=== PATIENT | male | born 1950 | race Caucasian/White ===

== ENCOUNTER 2019-03-28 11:30 | Emergency (ER) | payer MEDICARE, SELFPAY ==
[2019-03-28 11:41] VITALS: BP 147/92; PULSE 83; RESP 20; TEMP 36.9; O2SAT 100
[2019-03-28 11:44] VITALS: PULSE 83; RESP 20; O2SAT 100
--- NOTE | 2019-03-28 11:51 | ED.GENADULT ---
HPI - General Adult General Chief complaint: Upper Respiratory Infection Stated complaint: cough/chest congestion/sinus issues Time Seen by Provider: 03/28/19 11:51 Source: patient Mode of arrival: ambulatory Limitations: no limitations History of Present Illness HPI narrative: 68-year-old male patient presents to the [facility] with complaints of cold symptoms for the past 5 days. Patient states he started off as a head cold and states that he is now had a productive cough for the last 2 to 3 days. Patient states that his cough is worse at night when he lays down. Patient states he is tried [id number] Coricidin along with Robitussin for his symptoms. Patient denies any chest pain or shortness of breath. Patient denies any abdominal pain, nausea, vomiting or diarrhea. Patient states he did get a flu shot this year. Related Data Allergies Allergy/AdvReac Type Severity Reaction Status Date / Time No Known Allergies Allergy Verified 03/28/19 11:37 Review of Systems Review of Systems: Narrative: CONSTITUTIONAL: Denies fever, chills, or sweats. EYES: Denies visual changes, redness, or discharge. ENT: Positive clear rhinorrhea, congestion, denies sore throat, or otalgia. CARDIOVASCULAR: Denies chest pain, palpitations, or edema. RESPIRATORY: Positive cough, denies dyspnea. GASTROINTESTINAL: Denies abdominal pain, nausea, vomiting, or diarrhea. GENITOURINARY: Denies dysuria or hematuria. SKIN: Denies rash or itching. MUSCULOSKELETAL: Denies back pain, joint pain, or myalgia. NEUROLOGIC: Denies headache, numbness, or weakness. PSYCHIATRIC: Denies anxiety or depression. [facility] Family History Family History Father Family history of cardiovascular disease Other Diabetes mellitus Social History Social History Smoking status: Never smoker Alcohol intake: never Comments At the time of my signature I agree with nursing past medical history, surgical, social, and family history. There is no relevant family history pertinent to the presenting complaint. Exam Narrative: Exam Narrative: GENERAL: ill-appearing, well-nourished, and in no acute distress. HEAD: Normocephalic, atraumatic. No tenderness noted to frontal and maxillary sinuses on palpation. EYES: PERRLA and EOMI. ENT: Nares with erythema and edema noted bilaterally with right nare swollen shut, no rhinorrhea or epistaxis. Mucous membranes moist. Posterior pharynx with no erythema, tonsillar margin, exudates or lesions present. There is some noted postnasal drip. Bilateral TMs are clear no erythema or foreign bodies in the canal. NECK: Supple. No lymphadenopathy CHEST: Clear to auscultation. No respiratory distress. Patient able talk in clear complete sentences. No tripoding noted. HEART: Regular rate and rhythm. No murmur heard. Normal peripheral pulses. ABDOMEN: Soft, nontender, nondistended, normal active bowel sounds. EXTREMITIES: Normal range of motion. No edema. SKIN: Warm, dry, no rash. NEURO: No focal deficits. Alert and oriented x3. Course Vital Signs Vital signs: Vital Signs Temperature 36.9 C 03/28/19 11:41 Pulse Rate 83 03/28/19 11:41 Respiratory Rate 20 03/28/19 11:41 Blood Pressure 147/92 H 03/28/19 11:41 Pulse Oximetry 100 03/28/19 11:41 Temperature 36.9 C 03/28/19 11:41 Pulse Rate 83 03/28/19 11:44 Respiratory Rate 20 03/28/19 11:44 Blood Pressure 147/92 H 03/28/19 11:41 Pulse Oximetry 100 03/28/19 11:44 Vital signs reviewed. The patient has been informed that they may have pre-hypertension or Hypertension based on a BP reading in the department. I recommend that the patient call the primary care provider listed on their discharge instructions or a physician of their choice this week to arrange follow up for further evaluation of possible pre-hypertension or Hypertension Medical Decision Leonor
== END 2019-03-28 12:01 | disposition home or self-care (01) ==
PROVIDERS: Emergency Provider Nurse Practitioner Family; PCP Family Medicine
DX: J06.9 Acute upper respiratory infection, unspecified (principal); J34.89 Other specified disorders of nose and nasal sinuses; M19.90 Unspecified osteoarthritis, unspecified site; E03.9 Hypothyroidism, unspecified
CPT/HCPCS: 99213; G0463

== ENCOUNTER 2020-02-03 19:42 | Emergency (ER) | payer OTHER, MEDICARE, SELFPAY ==
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
[2020-02-03 19:42] VITALS: BP 187/91; PULSE 79; RESP 18; TEMP 36.3; O2SAT 99
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
[2020-02-03] MEDS: MORPHINE SULFATE (*CRX) 4 MG/ML INJ IV PUSH (21:01)
[2020-02-03] MEDS: ONDANSETRON INJ 4 MG/2 ML VIAL IV PUSH (21:01)
[2020-02-03] MEDS: SODIUM CHLORIDE 0.9% IV 1,000 ML 999 ML IV CONT (21:02)
[2020-02-03 21:44] LABS: Basophils Percent Auto 0.1 % (0.2-1.2); Eosinophils Absolute Auto 0.2 K/mm3 (0-0.3); Eosinophils Percent Auto 1.4 % (0-4.4); Hemoglobin 14.8 g/dL (14.0-18.0); Immature Granulocyte Absolute 0.07 K/mm3 (0.00-0.031); Immature Granulocyte Percent A 0.5 % (0-0.5); Lymphocytes Absolute Auto 2.01 K/mm3 (0.9-3.2); Lymphocytes Percent Auto 15.2 % (18.3-44.2); Mean Corpuscular HGB Conc 33.6 g/dl (32-36); Mean Corpuscular Hemoglobin 29.8 pg (26-34); Mean Corpuscular Volume 88.7 fl (80-100); Mean Platelet Volume 9.5 fl (7.4-10.4); Monocytes Absolute Auto 0.8 K/mm3 (0.1-0.6); Monocytes Percent Auto 5.7 % (2.6-8.5); Neutrophils Absolute Auto 10.2 K/mm3 (1.3-6.7); Neutrophils Percent Auto 77.1 % (45.5-73.1); Platelet Count Result 271 k/mm3 (150-375); Red Blood Count 4.96 M/mm3 (4.6-6.20); Red Cell Distribution Width 13.3 % (11.5-14.5); White Blood Count 13.2 K/mm3 (4.5-10.0)
[2020-02-03 21:46] LABS: Add Urine Microscopic? NO; Appearance Urine Clear (Clear); Bilirubin Urine Negative (Negative); Blood Urine Negative (Negative); Color Urine Straw (Yellow); Glucose Urine UA Negative (Negative); Ketones Urine Negative (Negative); Leukocyte Esterase Ur Negative LEU/UL (Negative); Nitrate Urine Negative (Negative); Protein Urine Negative (Negative); Specific Grav Ur 1.013 (1.001-1.035); Urobilinogen Urine Negative mg/dL (<2.0)
[2020-02-03] MEDS: HYDROmorphone HCL INJ (*CRX) 1 MG/ML SYR 0.5 MG IV PUSH (21:51)
[2020-02-03 21:53] VITALS: BP 181/86; PULSE 78; RESP 16; O2SAT 94
[2020-02-03 21:54] LABS: INR 1.1; Partial Thromboplastin Time 28.1 SECONDS (22.3-36.8); Prothrombin Time 14.6 Seconds (11.1-14.7)
[2020-02-03 21:57] LABS: Alanine Aminotransferase 18 U/L (4-50); Albumin Level 3.9 g/dL (3.5-5.1); Alkaline Phosphatase 107 U/L (38-126); Anion Gap 6 mmol/L (8-16); Aspartate Amino Transferase 29 U/L (17-59); Bilirubin,Total 0.6 mg/dL (0.2-1.3); Blood Urea Nitrogen 15 mg/dL (9-20); Calcium 8.7 mg/dL (8.4-10.2); Carbon Dioxide 26 mmol/L (22-30); Chloride 107 mmol/L (98-107); Estimated CRCL calculation 92 ml/min; Estimated Glomerular Filt Rate > 60; Glucose 101 mg/dL (75-110); Potassium 3.9 mmol/L (3.4-5.0); Sodium 139 mmol/L (137-145)
[2020-02-03 22:53] VITALS: BP 158/90; PULSE 88; RESP 18; O2SAT 98
[2020-02-03] MEDS: TETANUS,DIPHTHERIA,AC PERTUSSIS ADULT (0.5 ML) BOOSTRIX IM (23:32)
[2020-02-04] MEDS: oxyCODONE HCL (*CRX) 5 MG TAB IR PO
== END 2020-02-04 00:03 | disposition home or self-care (01) ==
PROVIDERS: Emergency Provider Emergency Medicine; PCP Family Medicine
DX: S06.0X0A Concussion without loss of consciousness, initial encounter (principal); S00.432A Contusion of left ear, initial encounter; M16.0 Bilateral primary osteoarthritis of hip; E03.9 Hypothyroidism, unspecified; M51.36 Other intervertebral disc degeneration, lumbar region; Z23 Encounter for immunization; V43.52XA Car driver injured in collision with other type car in traffic accident, initial encounter
CPT/HCPCS: 10140; 36415; 70450; 71046; 72125; 72128; 72132; 74177; 80053; 81003; 85025; 85610; 85730; 90471; 90715; 96361; 96374; 96375; 99284; A9270; J1170; J2270; J2405; J7030; Q9967

== ENCOUNTER 2020-08-28 10:33 | Outpatient (CLI) | payer MEDICARE, SELFPAY ==
--- NOTE | ~2020-08-28 | XR_ITS ---
EXAMINATION: XR knee RT min 4V DATE: 08/28/2020 11:05 INDICATION: Right knee pain and primary osteoarthritis. TECHNIQUE: 4 views of right knee including some standing views were obtained. COMPARISON: Right knee radiographs 08/30/2012 FINDINGS: Bone alignment is normal. No fracture. There is moderate osteoarthritis of medial and herndon lofemoral compartments and mild osteoarthritis of lateral compartment. There is a small knee joint ef fusion. IMPRESSION: 1. Moderate right knee osteoarthritis. 2. Small right knee joint effusion. Reviewed, dictated and finalized at location A.
--- NOTE | ~2020-08-28 | XR_ITS ---
EXAMINATION: XR knee LT min 4V DATE: 08/28/2020 11:05 INDICATION: Left knee pain and primary osteoarthritis. TECHNIQUE: 4 views of left knee including standing views were obtained. COMPARISON: Left knee radiographs 03/04/2019 FINDINGS: Bone alignment is normal. No fracture. There is moderate osteoarthritis of medial compartme nt and mild osteoarthritis of lateral and patellofemoral compartments. No knee joint effusion. IMPRESSION: 1. Moderate left knee osteoarthritis. Reviewed, dictated and finalized at location A.
--- NOTE | ~2020-08-28 | XR_ITS ---
XR hip BI 2V w AP pelvis DATE: 08/28/2020 11:05 INDICATION: Bilateral hip pain TECHNIQUE: AP pelvis. AP and lateral views of each hip. COMPARISON: 09/03/2018 AP pelvis and bilateral hips FINDINGS: There is levoscoliosis of the lumbar spine and lumbar and lumbosacral degenerative disc dis ease with prominent bridging osteophytes on the left at L3-4 and L4-5. The pubic symphysis and sacroiliac joints are intact. No pelvic fracture or bone destruction. Moderate right and mild left hip osteoarthritis. No fracture, dislocation, avascular necrosis or bone destruction of the hips. IMPRESSION: Moderate bilateral hip osteoarthritis Reviewed, dictated and finalized at location B.
== END 2020-08-28 10:34 | disposition home or self-care (01) ==
PROVIDERS: PCP Family Medicine; Visit Provider Family Medicine
DX: M16.0 Bilateral primary osteoarthritis of hip (principal); M17.0 Bilateral primary osteoarthritis of knee; M25.461 Effusion, right knee
CPT/HCPCS: 73521; 73564

== ENCOUNTER 2020-09-03 12:53 | Emergency (ER) | payer MEDICARE, SELFPAY ==
[2020-09-03 13:07] VITALS: BP 129/69; PULSE 78; RESP 16; TEMP 37.3; O2SAT 97
--- NOTE | 2020-09-04 19:42 | ED.SKABFB ---
HPI - Skin/Abscess/Foreign Bdy General Chief complaint: Skin/Abscess/Foreign Body Stated complaint: pos insect sting History of Present Illness HPI narrative: This is a 69-year-old male that presented to urgent care with right ankle swelling status post wasp sting.Patient did witness the wasp. His swoll and he developed redness. The swelling and redness migrated to his calf area. The patient denies pulses are palpable sensations are positive ,SOB, CP, palpitation, extremity numbness, lightheadedness, dizziness, constipation, diarrhea, chills, or fever. Related Data Allergies Allergy/AdvReac Type Severity Reaction Status Date / Time No Known Allergies Allergy Verified 09/03/20 13:06 Review of Systems Review of Systems: Narrative: A 14 organ system Review of Systems was performed and pertinent positives included in the HPI, otherwise remaining ROS is negative. All systems reviewed & are unremarkable except as noted in HPI and below PMFSH Past Medical History Medical History (Updated 09/04/20 @ 00:00 by Background Daemon) Bilateral primary osteoarthritis of hip Bilateral primary osteoarthritis of knee BMI 32.0-32.9,adult Elevated prostate specific antigen [PSA] Hypothyroidism Other intervertebral disc degeneration, lumbar region Family History Family History Father Family history of cardiovascular disease Other Diabetes mellitus Social History Social History Second hand tobacco smoke exposure: No Alcohol intake: never Substance use: never Substance use type: does not use 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 HEAD: normocephalic, atraumatic. EYES: PERRL. Sclera clear/white. Vision is grossly intact. EARS: External ears normal, auditory canals clear and without drainage, TMs normal without perforation. Hearing grossly intact. NOSE: External nose normal with no obvious nasal discharge, nares without redness, no rhinorrhea. THROAT: Mucous membranes moist, posterior pharynx clear. NECK: Neck supple, non-tender without lymphadenopathy, masses or thyromegaly. CARDIOVASCULAR: Regular rate and rhythm without murmurs, gallops, or rubs. RESPIRATORY: Clear to auscultation. Breath sounds equal bilaterally. No wheezes, rales, or rhonchi. GASTROINTESTINAL: Abdomen soft, non-tender, nondistended. Bowel sounds are active. No hepato-splenomegaly, or palpable masses. No guarding. SKIN: Erythema and edema to the right ankle area That Extends to the Mid calf. NEURO: awake, alert, and oriented to person, place and time. There were no obvious focal neurologic abnormalities. Steady gait EXTREMITIES: Limited range of motion right lower extremity. . No calf tenderness. Negative Homans sign bilaterally. BACK: Nontender without deformity or crepitance. No flank tenderness. Course Course Emergency Course: Patient treated for cellulitis Vital Signs Vital signs: Vital Signs Temperature 99.1 F 09/03/20 13:07 Pulse Rate 78 09/03/20 13:07 Respiratory Rate 16 09/03/20 13:07 Blood Pressure 129/69 09/03/20 13:07 Pulse Oximetry 97 09/03/20 13:07 Temperature 99.1 F 09/03/20 13:07 Pulse Rate 78 09/03/20 13:07 Respiratory Rate 16 09/03/20 13:07 Blood Pressure 129/69 09/03/20 13:07 Pulse Oximetry 97 09/03/20 13:07 MDM - Skin/Abscess/Foreign Bdy Differential Diagnosis Differential diagnosis: Likely cellulitis and insect bites Discharge Plan Discharge Clinical Impression: Cellulitis, Insect bite Patient Disposition: Home, Self-Care Condition: Stable Instructions: Antibiotic Form, Cellulitis (ED), Insect Bite or Sting (ED) Additional Instructions: Wash the area wit
== END 2020-09-03 13:59 | disposition home or self-care (01) ==
PROVIDERS: Emergency Provider Nurse Practitioner; PCP Family Medicine
DX: L03.115 Cellulitis of right lower limb (principal); T63.461A Toxic effect of venom of wasps, accidental (unintentional), initial encounter; M16.10 Unilateral primary osteoarthritis, unspecified hip; M17.10 Unilateral primary osteoarthritis, unspecified knee; E03.9 Hypothyroidism, unspecified; M51.36 Other intervertebral disc degeneration, lumbar region
CPT/HCPCS: 99213; G0463

== ENCOUNTER 2021-01-12 15:26 | Emergency (ER) | payer MEDICARE, SELFPAY ==
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
[2021-01-12 15:30] VITALS: BP 161/82; PULSE 80; RESP 16; TEMP 37.3; O2SAT 99
--- NOTE | 2021-01-12 15:30 | ED.LOWEXIN ---
HPI - Extremity Injury (Lower) General Chief Complaint: Extremity Injury, Lower Stated Complaint: L KNEE PAIN Time Seen by Provider: 01/12/21 15:30 Source: patient, RN notes reviewed and old records reviewed Mode of arrival: ambulatory Limitations: no limitations History of Present Illness HPI Narrative: 70-year-old male presents to the [facility] with complaints of left knee pain for the last 2 weeks. Has a history of chronic pain. Currently in PT for hip pain. Takes hydrocodone and meloxicam. Has full range of motion. Walks with a slight limp. Denies any injury. Patient was concern for meniscus injury. States he had surgery on his meniscus but does not remember hurting this much. Related Data Allergies Allergy/AdvReac Type Severity Reaction Status Date / Time No Known Allergies Allergy Verified 12/04/20 09:08 Review of Systems Review of Systems: All systems reviewed & are unremarkable except as noted in HPI and below Constitutional: Constitutional: Reports no additional constitutional complaints, Denies chills and Denies fever(s) Eyes: Eyes: Reports no additional eye complaints ENT: Reports system reviewed and no additional complaints, except as documented Cardiovascular: Cardiovascular: Reports no additional cardiovascular complaints Respiratory: Respiratory: Reports no additional respiratory complaints Musculoskeletal: Musculoskeletal: Reports as per HPI, Reports arthralgias (Left knee) and Denies joint swelling Integumentary/Breasts: Skin/Breast: Reports system reviewed and no additional complaints, except as docu Neurologic: Reports system reviewed and no additional complaints, except as documented Psychiatric: Psychiatric: Reports no additional psychiatric complaints Allergic/Immunologic: Allergic/Immunologic: Reports no additional allergic/immunologic complaints [facility] Past Medical History Medical History Bilateral primary osteoarthritis of hip Bilateral primary osteoarthritis of knee BMI 32.0-32.9,adult BMI 33.0-33.9,adult Elevated prostate specific antigen [PSA] Hypothyroidism Other intervertebral disc degeneration, lumbar region Family History Family History Father Family history of cardiovascular disease Other Diabetes mellitus Social History Social History Second hand tobacco smoke exposure: No Alcohol intake: never Substance use: never Substance use type: does not use 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 There is no relevant family history pertinent to the patient complaint. Exam Const: General: healthy appearing, no acute distress and alert Nutritional Appearance: well nourished Orientation/consciousness: patient oriented x3 Limitations: no limitations HENMT: Head: normal to inspection Eyes: Pupils: Equal, round and reactive pupils present Neck: Neck: normal visual inspection, no lymphadenopathy and no meningeal signs Chest: Chest palpation & inspection: normal inspection of the chest Resp: Effort & Inspection: normal respiratory effort Cardio: Rate: regular rate Rhythm: regular rhythm Back/Spine/Pelvis: Back: no CVA tenderness Skin: General skin exam: normal color Rashes: no rashes Wounds: no wounds Neuro: General: patient oriented x3, moves all extremities, no meningeal signs and no focal motor deficits Speech: normal speech Gait exam (Neuro): Normal gait present Extrem: Left lower extremity: knee Details: tenderness Location: of the lateral joint line Knee images: 1. Reports pain worse with movement. Psych: Appearance: grossly normal and well kempt Mental Status: men
== END 2021-01-12 16:36 | disposition home or self-care (01) ==
PROVIDERS: Emergency Provider Nurse Practitioner; PCP Family Medicine
DX: M25.562 Pain in left knee (principal); M16.0 Bilateral primary osteoarthritis of hip; M17.0 Bilateral primary osteoarthritis of knee; E03.9 Hypothyroidism, unspecified; M51.36 Other intervertebral disc degeneration, lumbar region
CPT/HCPCS: 73564; 99213; G0463

== ENCOUNTER 2021-02-15 06:44 | Outpatient (CLI) | payer MEDICARE, SELFPAY ==
--- NOTE | ~2021-02-15 | MR_ITS ---
EXAMINATION: MR knee LT wo con DATE: 02/15/2021 07:44 INDICATION: Left knee pain TECHNIQUE: Magnetic resonance imaging (MRI) of the left knee was performed without intravenous contra st. Sequences included coronal PD-weighted FSE, coronal PD-weighted FS FSE, sagittal T2-weighted FSE , sagittal PD-weighted FS FSE and axial PD weighted fat saturated FSE. COMPARISON: Left knee MRI dated 10/14/2017 FINDINGS: Medial compartment: Chronic tear of the medial meniscus now with smoother margins to a defect at the junction of the body and posterior horn consistent with interval partial meniscectomy. There is amorphous increased signa l of less than fluid intensity to the meniscal body extending approximately 1 cm anterior to the petra in of the meniscectomy defect which could represent degeneration versus residual/recurrent tear. Inte rval progression in partial-thickness cartilage loss along the anterior to central weightbearing medi al femoral condyle greater than 50% cartilage thickness loss at the central weightbearing medial femo ral condyle. There is mild irregularity to the articular cortex with minimal underlying increased mar row signal along the medial margin of the central weightbearing medial femoral condyle. Additional pa rtial thickness cartilage loss with mild chondral surface regularity at the medial tibial plateau wit h a few tiny foci of subarticular increased signal anteromedially. Lateral compartment: Subtle linear increased signal extending to contact the inferior articular surface along the body of the lateral meniscus on 3 consecutive images, series 5 & 6, images 13-15 consistent with meniscal tea r. Articular cartilage is normal. Patellofemoral compartment: Partial-thickness trochlear chondral ulceration with chondral surface regularity. This involves great er than 50% the cartilage thickness in places with mild underlying cortical irregularity at the infer ior aspect of the medial trochlea. Shallow chondral surface regularity along the inferior margin of t he patella. Ligaments and tendons: Posterior cruciate ligament is normal. The anterior cruciate ligament demonstrates a normal angle rel ative to Blumensaat line. It appears thickened with increased intrasubstance signal surrounding intac t appearing linear fibers with a celery stalk appearance. Again seen is thickening of the proximal medial collateral and fibular collateral ligaments without surrounding edema consistent with scarring related to chronic partial tears. The extensor mechanism is normal. The visualized medial and latera l hamstring tendons as well as the iliotibial band are normal. Fluid: Small knee joint effusion with mild synovitis at the suprapatellar pouch. No loose osteochondral bodi es identified. Small Montejo's cyst. Osseous/other: Alignment is normal. No fracture or pathologic marrow replacing process. IMPRESSION: 1. Interval partial medial meniscectomy with meniscal degeneration versus residual/recurrent tear kelly ng the anterior margin of the mastectomy defect. 2. Longitudinal horizontal tear at the body of the lateral meniscus. 3. Osteoarthritis with interval progression of now moderate osteoarthritis with extensive moderate to high-grade chondromalacia in the medial compartment and minimal change in mild osteoarthritis with a dditional moderate and high-grade chondromalacia in the patellofemoral compartment. 4. Small left knee joint effusion and small Montejo's cyst. 5. Mucoid degeneration of the anterior cruciate ligament without definitive tear. Correlate with phys ical exam to asses for degree of functional competence. 6. Unchanged scarring at the proximal medial and fibular collateral ligaments consistent with sequela of chronic sprains. Reviewed, dictated and finalized at location B. Electronically signed by Luis Alberto Bishop
== END 2021-02-15 06:45 | disposition home or self-care (01) ==
PROVIDERS: PCP Family Medicine; Visit Provider Family Medicine
DX: S83.282D Other tear of lateral meniscus, current injury, left knee, subsequent encounter (principal); X58.XXXD Exposure to other specified factors, subsequent encounter; M25.462 Effusion, left knee; M71.22 Synovial cyst of popliteal space [Baker], left knee
CPT/HCPCS: 73721

== ENCOUNTER 2021-03-15 06:46 | Outpatient (CLI) | payer MEDICARE, SELFPAY ==
--- NOTE | 2021-03-15 | ECG_ITS ---
Measurements Intervals [place] Rate: 77 P: 35 RI: 174 QRS: 63 QRSD: 102 T: 59 QT: 402 QTc: 456 Interpretive Statements SINUS RHYTHM BASELINE ARTIFACT- I, II, III, AVR, AVL, AVF, V1, V4-V6 NORMAL ECG Electronically Signed On 03-15-2021 8:02:23 HVAC SERVICE TECH by Francis Bustos D.O.
[2021-03-15 08:24] LABS: Hematocrit 43.3 % (42.0-52.0); Hemoglobin 14.6 g/dL (14.0-18.0)
[2021-03-15 08:37] LABS: Estimated Glomerular Filt Rate > 60; Glucose 108 mg/dL (65-110)
== END 2021-03-15 06:47 | disposition home or self-care (01) ==
PROVIDERS: PCP Family Medicine; Visit Provider Orthopaedic Surgery
DX: Z01.818 Encounter for other preprocedural examination (principal); M17.12 Unilateral primary osteoarthritis, left knee
CPT/HCPCS: 36415; 82040; 82565; 82947; 85014; 85018; 93005

== ENCOUNTER 2021-03-22 10:00 | Outpatient (CLI) | payer MEDICARE, SELFPAY ==
--- NOTE | ~2021-03-22 | CT_ITS ---
EXAMINATION: CT LE LT wo con DATE: 03/22/2021 10:22 INDICATION: Unilateral primary osteoarthritis of the left knee presenting with left knee pain TECHNIQUE: High resolution computed tomography (CT) of the left lower limb was performed without intr avenous contrast. Additional sagittal and coronal reconstructions were performed. Automated exposure control and iterative reconstruction technique were employed. The dose-length product was 1740.43 mGy -cm. COMPARISON: Left knee radiographs dated 01/12/2021 and MRI dated 02/15/2021 FINDINGS: Bone alignment is normal. No fracture. Mild osteoarthritis of the left hip. Small amount of heterotop ic ossification along the greater trochanter. Osteoarthritis at the left knee with moderate joint spa ce narrowing at the medial compartment which could be underestimated on nonweightbearing imaging. Sma ll marginal osteophytes at the patellofemoral compartment. Small left knee joint effusion. Additional polyarticular osteoarthritis at the left midfoot with moderate osteoarthritis of the second tarsal m etatarsal joint, mild to moderate osteoarthritis at the articulation between the navicula and the med ial cuneiform and mild osteoarthritis at the calcaneocuboid and cuboid navicular articulations. IMPRESSION: 1. Polyarticular osteoarthritis, moderate at the medial compartment of the left knee, mild to moderat e at several joints in the left midfoot and mild at the left hip. Reviewed, dictated and finalized at location A. OR VICE PRESIDENT & GENERAL COUNSEL IMPRESSION: 1. Polyarticular osteoarthritis, moderate at the medial compartment of the left knee, mild to moderate at several joints in the left midfoot and mild at the l eft hip.
== END 2021-03-22 10:01 | disposition home or self-care (01) ==
LOC: ANHIMG 10:03
PROVIDERS: PCP Family Medicine; Visit Provider Orthopaedic Surgery
DX: M17.12 Unilateral primary osteoarthritis, left knee (principal)
CPT/HCPCS: 73700

== ENCOUNTER 2021-05-05 07:42 | Outpatient (CLI) | payer MEDICARE, SELFPAY ==
[2021-05-05 09:14] LABS: Eosinophils Absolute Auto 0.2 K/mm3 (0-0.3); Eosinophils Percent Auto 2.2 % (0-4.4); Hematocrit 43.9 % (42.0-52.0); Hemoglobin 14.3 g/dL (14.0-18.0); Immature Granulocyte Absolute 0.03 K/mm3 (0.00-0.031); Immature Granulocyte Percent A 0.4 % (0-0.5); Lymphocytes Percent Auto 22.3 % (18.3-44.2); Mean Corpuscular HGB Conc 32.6 g/dl (32-36); Mean Corpuscular Hemoglobin 29.8 pg (26-34); Mean Corpuscular Volume 91.5 fl (80-100); Mean Platelet Volume 9.7 fl (7.4-10.4); Monocytes Absolute Auto 0.5 K/mm3 (0.1-0.6); Monocytes Percent Auto 7.4 % (2.6-8.5); Neutrophils Absolute Auto 4.8 K/mm3 (1.3-6.7); Neutrophils Percent Auto 67.7 % (45.5-73.1); Platelet Count Result 233 k/mm3 (150-375); Red Cell Distribution Width 13.2 % (11.5-14.5); White Blood Count 7.2 K/mm3 (4.5-10.0)
[2021-05-05 09:30] LABS: Urine Cotinine NEGATIVE
[2021-05-05 09:33] LABS: Albumin Level 4.2 g/dL (3.5-5.1); Estimated Glomerular Filt Rate > 60; Glucose 117 mg/dL (65-110)
[2021-05-05 10:44] LABS: Hemoglobin A1C 5.1 % (<5.7)
== END 2021-05-05 07:43 | disposition home or self-care (01) ==
LOC: ANHSURGERY 07:47
PROVIDERS: PCP Family Medicine; Visit Provider Orthopaedic Surgery
DX: Z01.812 Encounter for preprocedural laboratory examination (principal); M17.12 Unilateral primary osteoarthritis, left knee; Z51.81 Encounter for therapeutic drug level monitoring; Z79.899 Other long term (current) drug therapy
CPT/HCPCS: 80307; 82040; 82565; 82947; 83036; 85025; 87081

== ENCOUNTER 2021-06-01 00:03 | Day surgery (SDC) | payer MEDICARE, SELFPAY ==
[2021-05-05 07:54] VITALS: BMI 34.2
--- NOTE | 2021-05-05 08:18 | PC.NURSE ---
Report to the Outpatient Waiting Room, entrance under the green pavilion located off [facility], at time __0600 on date __06/01/21 . OR Time: _729 . - You and your visitor will be asked a series of questions to screen for COVID 19 for your protection. - A mask is required within the hospital. Preoperative COVID Testing Requirements: No COVID Test needed if: (proof is required; if not received patient will have Rapid Test prior to entry) - Patient has received COVID Vaccine at least 14 days prior to procedure date or - Patient has positive COVID test result within last 90 days of surgery date. COVID Test needed if above criteria is not met If not COVID vaccinated a COVID test must be conducted within 72 hours of surgery and patient is asked to isolate self from time of testing until procedure. You will go to the [facility] for your COVID testing. The [facility] is located at the corner of [address] [facility]. You will only be called if COVID results are positive and your surgeon may reschedule your elective surgery date. Patients may have clear liquids (water, carbonated beverages, clear teas, apple juice) until 3 hours prior to surgery with a maximum of 20 ounces. - No food from midnight until time of surgery - Infants may have breast milk until 4 hours before surgery, formula 6 hours prior to surgery. - Children will be allowed to drink immediately following surgery. If applicable, please bring a bottle or sippy cup to assist with drinking. Juice, water, soda, and popsicles are readily available. For infants on formula, please bring formula the day of surgery. Pacifiers are allowed. Take the following medications with a SIP of water the morning of surgery: ___SYNTHROID Medications to discontinue per physician _MELOXICAM 7 DAYS PRE OP, ALL VITAMINS AND SUPPLEMENTS 3 DAYS PRE OP Date to take last dose__MELOXICAM 05/24/21, VITAMINS 05/28/21 Please no make-up, nail slovenian, hairspray, perfume, deodorant, or body powder the day of surgery. No jewelry (including any body piercings) or valuables the day of surgery, leave them at home. Please take a shower or bath the night before, or the morning of, surgery with an antibacterial soap. Wear comfortable, loose fitting clothing. Children are encouraged to wear pajamas. - Jewelry must be removed prior to entering the operating room. Rings and piercings that are not removed may be cut off. - The hospital will not accept responsibility for valuables. - Please leave all valuables, including medications, at home the day of surgery. If you are going home after surgery, a licensed horse and wagon driver must drive you home. - NO public transportation without another adult. - We recommend that an adult stay with you for 24 hours following discharge. - We also recommend that you do not drive, make important decision, drink alcoholic beverages, or take any drugs that were not prescribed by your health care provider for at least 24 hours after your discharge time. For Pediatric surgeries, we recommend two adults accompany the child home (only one inside the building at this time). One visitor will be allowed to accompany the patient into the hospital. Patients visitor will be instructed to remain with patient at all times or leave the building. We will allow the visitor to come back to the postoperative area when patient is ready. Follow any additional instructions given to you from your surgeon. VERBAL/WRITTEN instructions given to __PATIENT and asked if any additional questions and then verbalized understanding. Patient advised to call surgeon office or pre surgery nurse liaison [phone] if any additional questions.
[2021-05-05 08:37] VITALS: BP 153/83; PULSE 78; RESP 18; TEMP 37.4; O2SAT 97
--- NOTE | 2021-05-31 14:19 | WPDANESEPPF ---
Anes - Initial Pre Proc Eval Procedure: Operation Date: 06/01/21 07:30 Proposed Procedures p Custom Left Total Knee Arthroplasty - Clark Jimenez MD Date/Time: 05/31/21 14:19 Surgeon: Clark Jimenez MD Pre Op Diagnosis: Prim O A Lt Knee Patient Data Age: 70 Gender: M Height: 1.83 m Weight: 114.7 kg Last Vital Signs Temp 37.4 C 05/05/21 08:37 Pulse 78 05/05/21 08:37 Resp 18 05/05/21 08:37 BP 153/83 H 05/05/21 08:37 Pulse Ox 97 05/05/21 08:37 Allergies Allergy/AdvReac Type Severity Reaction Status Date / Time No Known Allergies Allergy Verified 06/01/21 06:14 Home Medications Medication Instructions Recorded Confirmed Type meloxicam 7.5 mg tablet 7.5 mg PO BID #180 tablet 12/04/20 06/01/21 Rx Synthroid 112 mcg tablet 112 mcg PO DAILY #30 tablet NS 03/22/21 06/01/21 Rx hydrocodone 7.5 mg-acetaminophen 1 tablet PO Q4H PRN #180 tablet 05/03/21 06/01/21 Rx 325 mg tablet glucos sul [id number] 1 cap PO DAILY 05/05/21 06/01/21 History [Glucosamine Chondroitin] multivitamin [Men's Multi-Vitamin] 1 tablet PO DAILY 05/05/21 06/01/21 History tamsulosin 0.4 mg PO HS 05/05/21 06/01/21 History Patient hx anesthesia problems: none Family hx anesthesia problems: none Results Review: All pre-operative results and documents have been reviewed as part of the pre-operative evaluation. [facility] Past Medical History Medical History (Updated 05/31/21 @ 14:20 by Charles Ayoub MD) Bilateral primary osteoarthritis of hip Bilateral primary osteoarthritis of knee BMI 30.0-30.9,adult BMI 32.0-32.9,adult BMI 33.0-33.9,adult BMI greater than 30 Chronic narcotic use Elevated blood pressure reading Elevated prostate specific antigen [PSA] Hypothyroidism Left knee pain Obesity Other intervertebral disc degeneration, lumbar region Surgical History Surgical History History of meniscectomy of left knee (~12/01/17) by [facility] History of shoulder surgery Bilateral Hx of meniscectomy of right knee (~11/23/12) by [facility] Family History Family History Father Family history of cardiovascular disease Other Diabetes mellitus Social History Social History Second hand tobacco smoke exposure: No Additional smoking assessment comments: DENIES ANY FORM OF TOBACCO USE Alcohol intake: never Substance use: never Substance use type: does not use Living arrangements: alone 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 Informed Consent: The patient's anesthetic plan and its attendant risks and benefits were discussed with the patient/family/POA. Questions were solicited and answers provided to the satisfaction of the patient/family/POA.
--- NOTE | 2021-05-31 14:21 | WPDANESPNB ---
Anes - Peripheral Nerve Block Date/Time: 05/31/21 14:21 I have discussed with the patient/family/POA the placement of a peripheral nerve block for post-operative pain management, including associated risks, benefits, complications, and side effects. Alternative methods of post-operative analgesia were detailed. Questions were solicited and answers provided to the satisfaction of the patient/family/POA. Time-Out: A pre-procedural Time-Out was completed immediately before starting the procedure and confirmed: Patient Identification, Site, Procedure, Patient Position and the Availability of Requisite Equipment. Clinical Indications: Acute post-operative pain management requested by the operative surgeon. Nerve Block Insertion Note Anes-nerve block: adductor canal left Patient position: supine Skin prep: chlorhexidine Needle: 22 gauge, stimulating, insulated echogenic needle. Needle length: 80 mm Technique: ultrasound Technique comment: in plane Injectate: bupivacaine 0.25% with epi 5 mcg/ml (30cc) Observations: tolerated well Complications: none Procedure start time:: 720 Procedure end time:: 725
[2021-06-01] VITALS (18 sets, daily range): BP systolic 118–168; BP diastolic 54–89; PULSE 62–94; RESP 12–18; TEMP 36.3–37.2; O2SAT 88–100
--- NOTE | ~2021-06-01 | XR_ITS ---
EXAMINATION: XR knee LT 2V DATE: 06/01/2021 10:29 INDICATION: Postoperative evaluation following left total knee arthroplasty. TECHNIQUE: Anteroposterior and lateral views of the left knee were obtained. COMPARISON: None. FINDINGS: Left total knee arthroplasty without patellar resurfacing appears well seated and in near anatomic al ignment. No fractures identified. Expected postoperative subcutaneous and intra-articular gas. IMPRESSION: 1. Left total knee arthroplasty, negative for postoperative purposes. Reviewed, dictated and finalized at location A.
[2021-06-01] MEDS: LACTATED RINGERS 1,000 ML 30 ML IV CONT ×2 (06:31→10:39)
[2021-06-01] MEDS: ACETAMINOPHEN 500 MG TABLET 1000 MG PO (06:40)
[2021-06-01] MEDS: TRANEXAMIC ACID 1,000MG/ISO100 1,000 MG/100 ML BAG 200 MG IVPB (07:07)
--- NOTE | 2021-06-01 07:19 | WPDHPUPDATE1 ---
History and Physical Update Update Date/Time: 06/01/21 07:19 History and Physical has been reviewed, including an updated exam of the patient. There are NO changes in the patient's condition. Risks, benefits, and alternatives have been discussed and questions answered. Patient agrees to proceed with procedure.
[2021-06-01] MEDS: ceFAZolin 2 GM/D5W 50 ML 2 GM/50 ML BAG IVPB ×2 (07:38→16:29)
[2021-06-01] MEDS: fentaNYL CITRATE INJ (*CRX) 100 MCG/2 ML VIAL 25 MCG IV PUSH ×8 (10:18→10:50)
--- NOTE | 2021-06-01 10:36 | W.PM.PROC2 ---
Procedure Note - Detailed Date of Procedure 06/01/21 Pre-op Diagnosis Osteoarthritis left knee Post-op Diagnosis Same Procedure Performed Total knee arthroplasty, left. Surgeon Clark Jimenez MD Finished Hardware Erector Fannie Escalera PA-C Anesthesia General and Regional (Subsartorial block.) Findings Good bone quality. No releases required. Description of Procedure Preoperative antibiotics were given. The limb was prepped and draped in the usual sterile fashion with a well-padded tourniquet high on the thigh. The limb was exsanguinated and the tourniquet inflated to 300 mmHg during exposure and cementation. A longitudinal incision was created just medial to the patella. A trivector approach to the knee was performed. Arthrotomy was taken down through the joint capsule. No significant releases were initially taken. The femur was exposed and the F1 jig was applied. The coring tool was used to remove the cartilage for the F2 jig to sit flush with the bone. The jig was pinned and the distal cut carefully taken. Caliper measurements confirmed appropriate bony resections according to the preoperative templated plan. The F4 cutting jig for the femur was applied, at the standard rotation. The AP and anterior chamfer cuts were taken. The F5 jig was applied and the posterior chamfer cuts were taken. The tibia was prepared using the T1 jig, after removing cartilage for the jig contact points. Proper alignment was checked with the alignment dino. The tibia was cut using the T1u guide. Gap balancing was performed. Gap measurements were taken and the knee was trialed. Excellent alignment and soft tissue balancing was confirmed. The posterior cruciate ligament was recessed along the proximal tibia. The patella showed minimal chondromalacia, and was left in situ. Meniscal remnants were removed. The trial components were assembled. Excellent range of motion and proper soft tissue balancing were confirmed throughout the full range of motion. Patellar tracking was excellent. The knee was copiously irrigated periodically throughout the procedure. The real implants were cemented into position. Excess cement was carefully removed. The wound was closed in layers with interrupted #1 Vicryl suture, 2-0 strata fix suture, 0 strata fix suture, 2-0 strata fix suture. Steri-Strips placed on the skin with the knee flexed. Sterile bulky dressing applied. The patient was brought to the recovery room in stable condition. There were no complications. Physician assistant account manager, Fannie Escalera PA-C, required for surgery; including patient positioning, draping, tissue retraction, maintaining instrument position, cement removal, wound closure, and dressing placement. Implants Conformis Custom total knee arthroplasty. Cemented. Cruciate retaining. 6A insert. Estimated Blood Loss -100.0 Drains No Complications No immediate complications Condition Stable Disposition PACU
[2021-06-01] MEDS: HYDROmorphone HCL INJ (*CRX) 1 MG/ML SYR 0.5 MG IV PUSH ×4 (10:53→11:15)
--- NOTE | 2021-06-01 12:21 | ADMGEN ---
This patient, Himanshu Zuniga, was admitted to 2 Medical Room 240-. Patient/family oriented to hospital policies and general routines including ID bracelet, bed and alarms, visiting hours, pain management, procedures, bathroom and other care routines, personal items, smoking policy, room service/diet, and visiting hours. Information on how to activate the Rapid Response Team has been discussed. Patient/Family are encouraged to report perceived risks to care and to ask questions if they do not understand what they are told or what they should do.
[2021-06-01] MEDS: oxyCODONE HCL (*CRX) 5 MG TAB IR 10 MG PO ×3 (12:28→20:37)
[2021-06-01] MEDS: SODIUM CHLORIDE 0.9% IV 1,000 ML 125 ML IV CONT (12:28)
[2021-06-01] MEDS: SENNA/DOCUSATE SODIUM TABLET 2 TAB PO (16:30)
[2021-06-01] MEDS: ASPIRIN 81 MG ENTERIC TABLET PO (16:30)
[2021-06-01] MEDS: MELOXICAM 7.5 MG TABLET PO (16:30)
[2021-06-01] MEDS: TAMSULOSIN HCL 0.4 MG CAPSULE PO (20:33)
[2021-06-01] MEDS: FAMOTIDINE 20 MG TABLET PO (20:33)
[2021-06-01] MEDS: diphenhydrAMINE HCl INJ 50 MG/ML VIAL 25 MG IV PUSH (20:38)
[2021-06-02 03:29] VITALS: BP 100/68; PULSE 68; RESP 18; TEMP 36.5; O2SAT 99
[2021-06-02] MEDS: LEVOTHYROXINE SODIUM 112 MCG TABLET PO (05:57)
[2021-06-02] MEDS: oxyCODONE HCL (*CRX) 5 MG TAB IR 10 MG PO (08:01)
[2021-06-02] MEDS: SENNA/DOCUSATE SODIUM TABLET 2 TAB PO (08:02)
[2021-06-02] MEDS: FAMOTIDINE 20 MG TABLET PO (08:02)
[2021-06-02] MEDS: polyethylene glycoL 3350 17 GM POWD.PACK PO (08:02)
[2021-06-02] MEDS: MELOXICAM 7.5 MG TABLET PO (08:02)
[2021-06-02] MEDS: ceFAZolin 2 GM/D5W 50 ML 2 GM/50 ML BAG IVPB ×2 (08:02)
[2021-06-02] MEDS: ASPIRIN 81 MG ENTERIC TABLET PO (08:03)
--- NOTE | 2021-06-02 09:33 | PM.DS ---
DS: Admitting Diagnosis Discharge Date 06/02/21 Admitting Diagnosis OA knee Left DS: Discharge Diagnosis Discharge Diagnosis (1) Status post total left knee replacement: Code(s): Z96.652 - Presence of left artificial knee joint Status: Acute (2) Orthopedic aftercare for joint replacement: Code(s): Z47.1 - Aftercare following joint replacement surgery Status: Acute Assessment and Plan: Postop day 1: Left total knee arthroplasty. Patient tolerated procedure well. No complications. Pain manageable with pain medication. No numbness or tingling. We had a lengthy discussion regarding postoperative wound care, limitations, expectations, and exercises. Patient shows good understanding. He has had initial physical therapy and is tolerating it well. DVT prophylaxis: 81 mg baby aspirin b.i.d. for 14 days. Pain medication: Percocet. Meloxicam. Patient has followup appointment with Dr. Jimenez in 3 weeks. DS: Summary Hospital Course Reason for hospitalization: Total knee arthroplasty Hospital Course: Patient tolerated procedure well. Has had initial PT/OT. No complications. Pain well managed. Status at Discharge Functional status at discharge: uses cane/walker Overall status at discharge: patient is progressing back to baseline Time Spent with Patient Time attestation: Total time spent providing and/or coordinating discharge services: Exam Narrative: Overweight weight Male. Resting comfortably in chair. No acute distress. A&O x3. Wearing compression socks bilaterally. Dressing intact with no drainage. Moderate swelling. Small area of ecchymosis. No erythema. No hematoma. Good early range of motion. Calf nontender. Neurologic status intact. No varicosities. Distal pulses palpable. Discharge Plan Discharge Patient Disposition: Home, Self-Care Discharge Instructions: See instruction sheet Patient Instructions: Precautions after Total Joint Replacement Surgery (DC), Knee Replacement (DC) Follow-up/Referrals: Fannie Escalera PA [Physician Boiler Welder] - Discharge Medications: New aspirin 81 mg tablet,delayed release (DR/EC) 81 mg PO BID 14 Days Qty: 28 RF: 0 oxycodone-acetaminophen 5-325 mg tablet 1 - 2 tablet PO Q4-6H MDD 6 PRN (Reason: pain) Qty: 30 RF: 0 Continued meloxicam 7.5 mg tablet 7.5 mg PO BID Qty: 180 RF: 2 tamsulosin 0.4 mg capsule 0.4 mg PO HS RF: 0 Glucosamine Chondroitin 550-30-1 mg Capsule 1 cap PO DAILY RF: 0 multivitamin Tablet 1 tablet PO DAILY RF: 0 levothyroxine [Synthroid] 112 mcg tablet 112 mcg PO DAILY Qty: 30 RF: 2 Held hydrocodone-acetaminophen 7.5-325 mg tablet 1 tablet PO Q4H PRN (Reason: pain) Qty: 180 RF: 0 Hold Instructions: Resume on 06/16/21. Hold while taking oxycodone.
[2021-06-02 10:18] VITALS: BP 149/57; PULSE 85; RESP 20; TEMP 36.4; O2SAT 100
--- NOTE | 2021-06-02 10:54 | PCCCNOTE ---
On 06/02/21, the student, [Shauna English ], provided care and completed [facility] documentation on this patient. I have reviewed the student's documentation and agree with the findings.
== END 2021-06-02 12:00 | disposition home or self-care (01) ==
LOC: ANHSURGERY 05:48 → ANH2MED 11:58
PROVIDERS: PCP Family Medicine; Visit Provider Orthopaedic Surgery
PROC: (CPT 27447; principal; 2021-06-01 07:30)
DX: M17.12 Unilateral primary osteoarthritis, left knee (principal); G89.18 Other acute postprocedural pain; E03.9 Hypothyroidism, unspecified; Z79.891 Long term (current) use of opiate analgesic; M51.36 Other intervertebral disc degeneration, lumbar region; E66.9 Obesity, unspecified; Z68.32 Body mass index [BMI] 32.0-32.9, adult
CPT/HCPCS: 27447; 64447; 36415; 73560; 80307; 82040; 82565; 82947; 83036; 85025; 86850; 86900; 86901; 87081; 97110; 97116; 97161; 97165; 97530; A9270; C1713; C1776; J0131; J0171; J0690; J1100; J1170; J1200; J1885; J2250; J2270; J2405; J2704; J2795; J3010; J7030; J7120

== ENCOUNTER 2022-02-22 08:01 | Outpatient (CLI) | payer MEDICARE, SELFPAY ==
--- NOTE | 2022-02-22 11:00 | NEURO_ITS ---
Impression: # Complains of numbness of hands. # Moderate Carpal Tunnel Syndrome. # Right ulnar neuropathy around the elbow. # Absent median sensory responses. # Needle/EMG exam abnormal proximally as well ,left more than right, raising the possibility higher involvement as well,that is cervical pathology; Further evaluation recommended. Motor Nerve Conduction Upper Extremities Median Nerve Conduction Velocity (m/sec) Terminal Latency (msec) Response Voltage(mV) Elbow-Wrist Wrist Elbow Wrist Right 54 3.9 1 1 Left 55 5.3 1 1 Ulnar Nerve Conduction Velocity (m/sec) Terminal Latency (msec) Response Voltage(mV) Above Elbow Below Elbow Wrist Above Elbow Below Elbow Wrist Right 46 48 2.5 4 4 6 Left 53 2.7 4 6 F-Wave Latency Median (ms) Ulnar (ms) Right 33.7 31.8 Left 33.5 31.3 Sensory Nerve Conduction Upper Extremities Median Nerve Stimulation Terminal Latency (msec) Wrist/Digit Response Voltage (uV) Wrist Right NR/NR NR/NR Left NR/NR NR/NR Ulnar Nerve Stimulation Terminal Latency (msec) Wrist/Digit Response Voltage (uV) Wrist Right 3.1 28 Left 3.0 23 Radial Nerve Terminal Latency (msec) Response Voltage(mV) Right 2.4 10 Left 2.3 18 Left Right Muscles Examined Fibrillation Fasciculation Scarcity Voltage Duration Left Right Left Right Left Right Left Right Left Right X X Deltoid X X Biceps X X Brachioradialis X X Triceps X X Pronator Teres X X Ext Indicis X X Ext Digitorum X X Abd Poll Brev X X 1st Dorsal Interosseus Paraspinals MTDD
== END 2022-02-22 08:02 | disposition home or self-care (01) ==
PROVIDERS: PCP Family Medicine; Visit Provider Family Medicine
DX: R20.0 Anesthesia of skin (principal); G56.00 Carpal tunnel syndrome, unspecified upper limb; G56.21 Lesion of ulnar nerve, right upper limb
CPT/HCPCS: 95886; 95911

== ENCOUNTER 2022-06-22 16:43 | Outpatient (CLI) | payer MEDICARE, SELFPAY ==
--- NOTE | ~2022-06-22 | XR_ITS ---
EXAM: XR cervical spine 4-5V DATE: 06/22/2022 17:04 HISTORY: NECK PAIN, HAND NUMBNESS RT SIDED . COMPARISON: CT C-spine 02/03/2020. FINDINGS: Craniocervical association and atlantoaxial joint are aligned. Moderate degenerative bell e at the atlantoaxial interval. No prevertebral soft tissue swelling. 2 mm anterolisthesis at C3-4. 3 mm anterolisthesis at C4-5. Mild degenerative height loss at C5 and C6. Multilevel disc space narrow ing and marginal osteophytosis, moderate at C5-6. Multilevel moderate facet sclerosis and hypertrophy . IMPRESSION: Grade 1 anterolistheses at C3-4 and C4-5. Moderate degenerative disc disease at C5-6. Mul tilevel moderate facet arthropathy. Reviewed, dictated and finalized at location K. IMPRESSION: Grade 1 anterolistheses at C3-4 and C4-5. Moderate degenerative dis c disease at C5-6. Multilevel moderate facet arthropathy.
== END 2022-06-22 16:44 | disposition home or self-care (01) ==
LOC: ANHIMG 16:46
PROVIDERS: PCP Family Medicine; Visit Provider Plastic Surgery
DX: M54.12 Radiculopathy, cervical region (principal); R20.0 Anesthesia of skin; M50.322 Other cervical disc degeneration at C5-C6 level
CPT/HCPCS: 72050

== ENCOUNTER 2022-07-13 08:30 | Outpatient (CLI) | payer MEDICARE, SELFPAY ==
--- NOTE | 2022-07-13 09:02 | ECG_ITS ---
Measurements Intervals [place] Rate: 69 P: 18 MO: 170 QRS: 50 QRSD: 98 T: 48 QT: 416 QTc: 449 Interpretive Statements SINUS RHYTHM VENTRICULAR PREMATURE COMPLEXES BORDERLINE ECG COMPARED TO ECG 03/15/2021 07:49:38 NO SIGNIFICANT CHANGES Electronically Signed On 07-13-2022 9:43:59 CDT by Francis Bustos D.O.
== END 2022-07-13 08:31 | disposition home or self-care (01) ==
PROVIDERS: PCP Family Medicine; Visit Provider Plastic Surgery
DX: Z01.818 Encounter for other preprocedural examination (principal); G56.01 Carpal tunnel syndrome, right upper limb
CPT/HCPCS: 93005

== ENCOUNTER 2022-08-19 12:47 | Emergency (ER) | payer MEDICARE, SELFPAY ==
[2022-08-19] VITALS (8 sets, daily range): BP systolic 163–175; BP diastolic 77–109; PULSE 74–101; RESP 14–20; TEMP 36.6; O2SAT 96–99
--- NOTE | ~2022-08-19 | CT_ITS ---
EXAMINATION: CT abdomen pelvis wo/w con DATE: 08/19/2022 16:51 INDICATION: Urinary retention, UTI, lower abdominal pain. TECHNIQUE: Computed tomography (CT) of the abdomen and pelvis was performed without and with 130 mL O mnipaque 350 intravenous contrast. Automated exposure control and iterative reconstruction technique were employed. The dose-length product was 3443.78 mGy-cm. COMPARISON: 02/03/2020. FINDINGS: Lower thorax: Unremarkable Liver: Normal. Biliary/Gallbladder: Gallbladder is normal. No bile duct dilation. Pancreas: No mass or duct dilation. Mild atrophy. Spleen: Granulomatous calcifications. Adrenals:Likely benign left adenoma. Normal right adrenal gland. Kidneys: Mild bilateral cortical thinning. 2 mm, nonobstructing right inferior pole calcification. Ri ght midpole simple cyst. Well filled collecting system, with no filling defects. GI tract: No small or large bowel dilation. The appendix is surgically absent. Diverticulosis without diverticulitis. Mesentery/Peritoneum: No ascites, mass, or free air. Retroperitoneum: No mass. Pelvis: Marked prostate enlargement, indenting the inferior surface of the bladder. Mild bladder wall thickening. No bladder mass.. Soft Tissues: Soft tissues and body wall unremarkable. Bones: No acute osseous finding. IMPRESSION: Nonobstructing right nephrolithiasis. Marked prostatomegaly. Urinary bladder wall thickening, as can be seen with outlet compromise and cystitis. Reviewed, dictated and finalized at location K. IMPRESSION: Nonobstructing right nephrolithiasis. Marked prostatomegaly. Urinary bladder wall thickening, as can be seen with outlet compromise and cyst itis.
[2022-08-19 13:12] LABS: Appearance Urine Clear (Clear); Bacteria Urine None Seen /hpf; Bilirubin Urine Negative (Negative); Blood Urine 3+ (Negative); Color Urine Yellow (Yellow); Glucose Urine UA Negative (Negative); Ketones Urine Trace mg/dL (Negative); Leukocyte Esterase Ur Trace LEU/UL (Negative); Nitrate Urine Negative (Negative); Non Pathogenic Casts 0-2; Protein Urine Negative (Negative); RBC Urine 51-100 /hpf (0-2); Specific Grav Ur 1.012 (1.001-1.035); Squamous Epithelial Cell Urine None seen /hpf (Few)
[2022-08-19 13:28] LABS: Add Urine Microscopic? YES
--- NOTE | 2022-08-19 14:06 | ED.MALEGU ---
HPI - Male Genitourinary General Chief complaint: Urogenital-Male Stated complaint: unable to urinate Time Seen by Provider: 08/19/22 13:16 Source: patient Mode of arrival: ambulatory Limitations: no limitations History of Present Illness HPI Narrative: Patient is a 71-year-old male who presents to the ED with report of being unable to urinate. Patient reports he was able to urinate last night around 7 PM. He has been up since 4 AM this morning and unable to urinate. He reports having pain and pressure in his lower abdomen and the feeling of urge to urinate. He denies any back pain. Denies nausea, vomiting, fevers. Denies bowel abnormalities. Patient denies history of retention or kidney stones. Related Data Home Medications Medication Instructions Recorded Confirmed multivitamin 1 tablet PO DAILY 05/05/21 01/24/22 Allergies Allergy/AdvReac Type Severity Reaction Status Date / Time No Known Allergies Allergy Verified 08/19/22 12:52 Review of Systems Review of Systems: CONSTITUTIONAL: Denies fever, chills, or sweats. CARDIOVASCULAR: Denies chest pain. RESPIRATORY: Denies dyspnea. GASTROINTESTINAL: See HPI. GENITOURINARY: See HPI. SKIN: Denies rash or itching. MUSCULOSKELETAL: Denies back pain, joint pain, or myalgia. All systems reviewed & are unremarkable except as noted in HPI and below [facility] Past Medical History Medical History Bilateral carpal tunnel syndrome Bilateral primary osteoarthritis of hip Bilateral primary osteoarthritis of knee BMI 30.0-30.9,adult BMI 32.0-32.9,adult BMI 33.0-33.9,adult BMI greater than 30 Cervicalgia Chronic narcotic use Elevated blood pressure reading Elevated prostate specific antigen [PSA] Hypothyroidism Left knee pain Numbness of left hand Obesity Other intervertebral disc degeneration, lumbar region Ulnar nerve entrapment Weakness of both hands Surgical History Surgical History History of meniscectomy of left knee (~12/01/17) by [facility] History of shoulder surgery Bilateral History of total left knee replacement (TKR) (~06/01/21) Conformis per [facility] Hx of meniscectomy of right knee (~11/23/12) by [facility] Family History Family History Father Family history of cardiovascular disease Other Diabetes mellitus Social History Social History Smoking status: Never smoker Second hand tobacco smoke exposure: No Additional smoking assessment comments: DENIES ANY FORM OF TOBACCO USE Alcohol intake: never Substance use: never Substance use type: does not use Living arrangements: alone Occupation/Education: 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 HEAD: Normocephalic, atraumatic. NECK: Supple. No adenopathy, no masses. RESPIRATORY: Airway patent, respirations nonlabored. Clear to auscultation bilaterally, no rales, rhonchi, wheezing. CARDIOVASCULAR: Regular rate and rhythm without murmurs, rubs, or gallops. Radial pulses 2+ and equal bilaterally. ABDOMINAL: Soft, tenderness throughout lower abdomen, nondistended, no hepatosplenomegaly. Normoactive BS. MUSCULOSKELETAL: Moves all extremities. Strength/ROM intact without gross deformities. No tenderness throughout mid back. SKIN: Warm, dry, normal color. No rashes. NEURO: A&O X3. Speech clear. Cranial nerves II-XII grossly intact. Steady gait. No ataxic movements. PSYCHIATRIC: Appropriate mood and affect. Normal interaction. Course Vital Signs Vital signs: Vital Signs Temperature 97.8 F 08/19/22 12:50 Pulse Rate 101 H
[2022-08-19 14:26] LABS: Basophils Percent Auto 0.1 % (0.2-1.2); Eosinophils Percent Auto 0.1 % (0-4.4); Hemoglobin 14.3 g/dL (14.0-18.0); Immature Granulocyte Absolute 0.04 K/mm3 (0.00-0.031); Immature Granulocyte Percent A 0.4 % (0-0.5); Lymphocytes Percent Auto 7.6 % (18.3-44.2); Mean Corpuscular HGB Conc 33.3 g/dl (32-36); Mean Corpuscular Hemoglobin 29.7 pg (26-34); Mean Corpuscular Volume 89.2 fl (80-100); Mean Platelet Volume 9.9 fl (7.4-10.4); Monocytes Absolute Auto 0.5 K/mm3 (0.1-0.6); Monocytes Percent Auto 4.3 % (2.6-8.5); Neutrophils Absolute Auto 9.3 K/mm3 (1.3-6.7); Neutrophils Percent Auto 87.5 % (45.5-73.1); Platelet Count Result 266 k/mm3 (150-375); Red Blood Count 4.82 M/mm3 (4.6-6.20); Red Cell Distribution Width 13.6 % (11.5-14.5); White Blood Count 10.6 K/mm3 (4.5-10.0)
[2022-08-19 14:35] LABS: Alanine Aminotransferase 22 U/L (6-50); Albumin Level 4.4 g/dL (3.5-5.1); Alkaline Phosphatase 108 U/L (38-126); Anion Gap 8 mmol/L (8-16); Aspartate Amino Transferase 29 U/L (17-59); Bilirubin,Total 0.7 mg/dL (0.2-1.3); Blood Urea Nitrogen 12 mg/dL (9-20); Calcium 9.5 mg/dL (8.4-10.2); Carbon Dioxide 27 mmol/L (22-30); Chloride 105 mmol/L (98-107); Estimated CRCL calculation 116 ml/min; Estimated Glomerular Filt Rate > 60; Glucose 120 mg/dL (65-110); Sodium 140 mmol/L (137-145)
[2022-08-19] MEDS: SODIUM CHLORIDE 0.9% IV 1,000 ML 999 ML IV CONT (15:16)
[2022-08-19] MEDS: TAMSULOSIN HCL 0.4 MG CAPSULE PO (17:18)
[2022-08-19] MEDS: ONDANSETRON INJ 4 MG/2 ML VIAL (17:45)
[2022-08-19] MEDS: MORPHINE SULFATE (*CRX) 4 MG/ML INJ (17:45)
[2022-08-19] MEDS: LIDOCAINE HCL 2% GEL UROJET 10 ML PKG (17:46)
--- NOTE | 2022-08-19 18:16 | PC.NURSE ---
Education given on leg jaimes bag to and patient. Both were able to return verbal instructions.
--- NOTE | 2022-08-19 18:45 | PC.NURSE ---
Upon attempting to discharge patient he went to sit up on edge of bed and yelled I cant do this, this is bullshit! Who in their right mind would send someone home like this! Pts then told him tolay back down and that he does not have to go home and can stay here. SANDRA Gardner, made aware.
[2022-08-19] MEDS: KETOROLAC 30 MG/ML VIAL (*BKC) IM (19:07)
--- NOTE | 2022-08-19 19:08 | PC.NURSE ---
RN offered for patient to wait after pain medication administration to assess if the meds worked properly or if patient required additional. Pt refused to wait and requested to leave at this time. Ambulatory at time of discharge.
== END 2022-08-19 19:15 | disposition home or self-care (01) ==
PROVIDERS: Emergency Medicine; Emergency Provider Physician Assistant; PCP Family Medicine
DX: N40.1 Benign prostatic hyperplasia with lower urinary tract symptoms (principal); R33.8 Other retention of urine; N30.01 Acute cystitis with hematuria; E03.9 Hypothyroidism, unspecified; E66.9 Obesity, unspecified; Z68.31 Body mass index [BMI] 31.0-31.9, adult; M51.36 Other intervertebral disc degeneration, lumbar region; Z96.652 Presence of left artificial knee joint; N20.0 Calculus of kidney
CPT/HCPCS: 36415; 51702; 74178; 80053; 81001; 85025; 87086; 96361; 96365; 96372; 96375; 99284; A9270; J0696; J1885; J2270; J2405; J7030; Q9967

== ENCOUNTER 2022-09-05 15:10 | Outpatient (CLI) | payer MEDICARE, SELFPAY ==
--- NOTE | ~2022-09-05 | MR_ITS ---
MRI of the cervical spine Clinical History: Spondylosis Technique: Axial T2-weighted and gradient images, and sagittal T1-weighted, T2-weighted, and STIR burak ges were acquired. Findings: There is no fracture. Probable minimal grade 1 anterolisthesis of C4 over C5. No suspicious bone marrow signal abnormality seen. At C2-C3, there is no disc bulge or herniation. No spinal canal stenosis, cord compression, or neural foraminal narrowing. At C3-C4, there is mild disc osteophyte complex. No bret spinal canal stenosis or cord compression. Probable minimal left neural foraminal narrowing. Right neural foramen preserved. There is left facet arthropathy. At C4-C5, there is disc osteophyte complex, which may minimally flatten the ventral cord. There is le ft neural foraminal narrowing and left facet arthropathy. Right-sided neural foramen is preserved. At C5-C6, there is mild disc osteophyte complex with probable minimal canal stenosis and minimal vent ral cord flattening. There is bilateral neural foraminal narrowing, left worse than right. At C6-C7, there is mild disc osteophyte complex. No bret spinal canal stenosis or cord compression. Bilateral neural foramina are preserved. No abnormal signal evident in the spinal cord. Paravertebral soft tissues are unremarkable. Impression: [id number] degenerative spondylosis in the cervical spine, as detailed above, probably worst at C4-C5 and C5-C6. Minimal grade 1 anterolisthesis of C4 over C5. Reviewed, dictated and finalized at [facility]. Impression: [id number] degenerative spondylosis in the cervical spine, as detailed ab ove, probably worst at C4-C5 and C5-C6. Minimal grade 1 anterolisthesis of C4 over C5.
== END 2022-09-05 15:11 | disposition home or self-care (01) ==
PROVIDERS: PCP Family Medicine; Visit Provider Family Medicine
DX: M47.22 Other spondylosis with radiculopathy, cervical region (principal); R29.898 Other symptoms and signs involving the musculoskeletal system
CPT/HCPCS: 72141

== ENCOUNTER 2023-01-27 14:04 | Outpatient (CLI) | payer MEDICARE, SELFPAY ==
--- NOTE | ~2023-01-27 | XR_ITS ---
EXAMINATION: XR shoulder RT min 2V, XR shoulder LT min 2V DATE: 01/27/2023 14:28 INDICATION: Chronic bilateral shoulder pain TECHNIQUE: 1. AP internally and externally rotated, AP oblique externally rotated and transscapular Y views of t he right shoulder were obtained. 2. AP internally and externally rotated, AP oblique externally rotated and transscapular Y views of t he left shoulder were obtained. COMPARISON: None FINDINGS: Normal alignment at both shoulders. No fracture. Mild right and mild to moderate left glenohumeral o steoarthritis. Mild right and moderate left alfaro clavicular osteoarthritis. Small left-sided subacr omial spur. There is suggestion of prior anterior right acromioplasty and approximately lateral head of the right clavicle. Correlate with surgical history. Visualized portion of the lungs are clear. So ft tissues are unremarkable. IMPRESSION: 1. Mild osteoarthritis of the right glenohumeral and acromioclavicular joints with suggestion of prio r right anterior acromioplasty and distal right clavicle resection. 2. Moderate left acromioclavicular osteoarthritis and mild to moderate left humeral osteoarthritis. Reviewed, dictated and finalized at location A. SING SUPERVISOR IMPRESSION: 1. Mild osteoarthritis of the right glenohumeral and acromioclavicular joints w ith suggestion of prior right anterior acromioplasty and distal right clavicle resection. 2. Moderate left acromioclavicular osteoarthritis and mild to moderate left hum eral osteoarthritis.
== END 2023-01-27 14:05 | disposition home or self-care (01) ==
LOC: ANHIMG 14:08
PROVIDERS: PCP Family Medicine; Visit Provider Orthopaedic Surgery
DX: M19.012 Primary osteoarthritis, left shoulder (principal); M19.011 Primary osteoarthritis, right shoulder
CPT/HCPCS: 73030

== ENCOUNTER 2023-03-18 09:54 | Observation (INO) | payer MEDICARE, SELFPAY ==
--- NOTE | ~2023-03-18 | CT_ITS ---
EXAMINATION: CT brain wo con DATE: 03/18/2023 14:39 INDICATION: headache . TECHNIQUE: Computed tomography (CT) of the head was performed without intravenous contrast. The mA wa s adjusted according to patient size. Iterative reconstruction technique was employed. The dose-lengt h product was 605.33 mGy-cm. COMPARISON: None. FINDINGS: No acute intracranial hemorrhage or extra-axial fluid collection. No hydrocephalus, mass, or herniation. No acute ischemic infarct. Unremarkable dural venous sinus attenuation. No acute osseous abnormality. Ethmoid mucosal thickening, the remaining aerated spaces are clear. Moderate atrophy and chronic white matter change. Atherosclerotic intracranial calcification. Tiny fo cus of encephalomalacia in the right posterior occipital lobe. IMPRESSION: No acute intracranial process. Reviewed, dictated and finalized at location K. PUMPER
--- NOTE | ~2023-03-18 | CT_ITS ---
EXAMINATION: CT cervical spine wo con DATE: 03/18/2023 14:39 INDICATION: neck pain TECHNIQUE: Computed tomography (CT) of the cervical spine was performed without intravenous contrast. Automated exposure control and iterative reconstruction technique were employed. The dose-length pro duct was 457.05 mGy-cm. COMPARISON: 02/03/2020. FINDINGS: Vertebral Body Alignment: Intact. Stable trace listheses at C4-5. Craniocervical and atlantoaxial alignment: Moderate degenerative change. Alignment intact. Osseous structures/fracture: No evidence of a lytic or blastic process in the visualized spine. No e vidence of acute fracture. Cervical soft tissues: The paraspinal soft tissues planes are maintained. Septal thickening in the julio ng apices. 2.7 cm right thyroid nodule Degenerative changes: Multilevel degenerative disc disease and facet arthropathy. Bilateral severe ne ural foraminal narrowing at C5-6. No severe central canal narrowing.. IMPRESSION: No acute fracture or traumatic malalignment in the cervical spine. Possible mild pulmonary edema. 2.7 cm right thyroid nodule, recommend outpatient thyroid ultrasound for further evaluation. Reviewed, dictated and finalized at location K. E [employer] OFFICER IMPRESSION: No acute fracture or traumatic malalignment in the cervical spine. Possible mild pulmonary edema. 2.7 cm right thyroid nodule, recommend outpatient thyroid ultrasound for furthe r evaluation.
[2023-03-18 10:10] VITALS: BP 167/96; PULSE 81; RESP 18; TEMP 37.1; O2SAT 100
--- NOTE | 2023-03-18 10:55 | ED.GENADULT ---
HPI - General Adult General Chief complaint: Neck Pain/Injury Stated complaint: increasing neck pain/ray Time Seen by Provider: 03/18/23 10:30 History of Present Illness HPI narrative: 72-year-old male with history of degenerative disc disease present emergency department for evaluation of worsening right-sided neck pain. Patient had an MRI approximately 4 months ago. Patient is scheduled for follow-up with Neurosurgery. Patient states that his pain has been worsening over the course of the last 2 weeks. Patient stop taking his medications for pain control because he did not feel they were helping. Patient states that over the course of the last week the pain was further worsened. Patient denies any new numbness or weakness the patient denies any falls or injuries. Related Data Home Medications Medication Instructions Recorded Confirmed multivitamin 1 tablet PO DAILY 05/05/21 02/01/23 Allergies Allergy/AdvReac Type Severity Reaction Status Date / Time No Known Allergies Allergy Verified 03/18/23 10:24 Review of Systems Review of Systems: All systems reviewed & are unremarkable except as noted in HPI and below [facility] Past Medical History Medical History Bilateral carpal tunnel syndrome Bilateral primary osteoarthritis of hip Bilateral primary osteoarthritis of knee Bladder wall thickening BMI 30.0-30.9,adult BMI 32.0-32.9,adult BMI 33.0-33.9,adult BMI greater than 30 Cervical radiculopathy due to degenerative joint disease of spine Cervicalgia Chronic narcotic use Elevated blood pressure reading Elevated prostate specific antigen [PSA] Hypothyroidism Left knee pain Numbness of left hand Obesity Other intervertebral disc degeneration, lumbar region Ulnar nerve entrapment Weakness of both hands Surgical History Surgical History History of meniscectomy of left knee (~12/01/17) by [facility] History of shoulder surgery Bilateral History of total left knee replacement (TKR) (~06/01/21) Conformis per [facility] Hx of meniscectomy of right knee (~11/23/12) by [facility] Family History Family History Father Family history of cardiovascular disease Other Diabetes mellitus Social History Social History Smoking status: Never smoker Second hand tobacco smoke exposure: No Additional smoking assessment comments: DENIES ANY FORM OF TOBACCO USE Alcohol intake: never Substance use: never Substance use type: does not use Lack of Transportation: No Lack of Food: Never True Current Housing: I Have Housing Concerned About Future Housing: No Difficulty Paying Gas/Electric Bills: No Difficulty Paying for Meds: No Currently Unemployed: No Education: Associate Degree Difficulty w/ Childcare or Family Care: No Living arrangements: alone Occupation/Education: 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 HEAD: normocephalic, atraumatic. EYES: PERRLA/EOMI, conjunctivae clear. NOSE: Normal no drainage NECK: Supple. No adenopathy, no masses. RESPIRATORY: Airway patent, respirations nonlabored. Clear to auscultation bilaterally, no rales, rhonchi, wheezing. CARDIOVASCULAR: Regular rate and rhythm without murmurs rubs or gallops. ABDOMINAL: Soft, nontender, nondistended, normal bowel sounds MUSCULOSKELETAL: Moves all extremities. Strength/ROM intact, No edema, No calf tenderness. NEURO: Alert. Cranial nerves II through XII intact. SKIN: Warm, dry. Normal Color Course Course Emergency Course: 72-year-old male presenting to the emergency department for evaluation
[2023-03-18] MEDS: HYDROmorphone HCL INJ (*CRX) 1 MG/ML SYR 0.5 MG IV PUSH ×4 (11:05→22:59)
[2023-03-18] MEDS: KETOROLAC 15 MG/ML VIAL (*BKC) IV PUSH (11:08)
[2023-03-18] MEDS: CYCLOBENZAPRINE HCL 10 MG TABLET PO (11:08)
[2023-03-18 11:18] VITALS: BP 183/94; PULSE 65; RESP 20; O2SAT 98
[2023-03-18 13:17] VITALS: BP 135/104; PULSE 75; RESP 22; O2SAT 100
[2023-03-18 16:42] VITALS: BP 159/85; PULSE 63; RESP 20; TEMP 36.7; O2SAT 98
[2023-03-18 16:58] LABS: Basophils Percent Auto 0.1 % (0.2-1.2); Eosinophils Absolute Auto 0.1 K/mm3 (0-0.3); Eosinophils Percent Auto 1.2 % (0-4.4); Hemoglobin 14.8 g/dL (14.0-18.0); Immature Granulocyte Absolute 0.02 K/mm3 (0.00-0.031); Immature Granulocyte Percent A 0.2 % (0-0.5); Lymphocytes Absolute Auto 2.18 K/mm3 (0.9-3.2); Lymphocytes Percent Auto 26.5 % (18.3-44.2); Mean Corpuscular HGB Conc 32.9 g/dl (32-36); Mean Corpuscular Hemoglobin 30.3 pg (26-34); Mean Corpuscular Volume 92.2 fl (80-100); Mean Platelet Volume 9.6 fl (7.4-10.4); Monocytes Absolute Auto 0.6 K/mm3 (0.1-0.6); Monocytes Percent Auto 6.9 % (2.6-8.5); Neutrophils Absolute Auto 5.4 K/mm3 (1.3-6.7); Neutrophils Percent Auto 65.1 % (45.5-73.1); Platelet Count Result 226 k/mm3 (150-375); Red Blood Count 4.88 M/mm3 (4.6-6.20); Red Cell Distribution Width 13.6 % (11.5-14.5); White Blood Count 8.2 K/mm3 (4.5-10.0)
[2023-03-18 17:09] LABS: Alanine Aminotransferase 14 U/L (6-50); Alkaline Phosphatase 106 U/L (38-126); Anion Gap 7 mmol/L (8-16); Aspartate Amino Transferase 22 U/L (17-59); Bilirubin,Total 0.8 mg/dL (0.2-1.3); Blood Urea Nitrogen 12 mg/dL (9-20); Calcium 9.3 mg/dL (8.4-10.2); Carbon Dioxide 28 mmol/L (22-30); Chloride 105 mmol/L (98-107); Estimated CRCL calculation 89 ml/min; Estimated Glomerular Filt Rate > 60; Glucose 98 mg/dL (65-110); Sodium 140 mmol/L (137-145)
--- NOTE | 2023-03-18 17:55 | PM.IMHP ---
H&P: HPI History of Present Illness Date/Time: 03/18/23 17:55 Chief Complaint: Neck Pain Narrative: 72 y/o M presents here with neck pain with PMH of cervical radiculopathy, chronic pain with chronic narcotic use, hypothyroidism, and degenerative disc disease. Patient presents here with acute on chronic neck pain that has been worsening over the course of the last 2 weeks. No aggravating injury, fall, or event prior to worsening of symptoms. Pain radiates into his lower skull. Pain is primarily on the right, typically is more bilateral. Patient currently follows with Neuro Surgery here for his neck, Ortho here for his shoulders, and Pain Management at [facility]. Patient reports he will not be going back to this pain clinic due to a recent unnecessary appointment/cost per appt - just follow-up from previous injection and scheduling the next injection. Per patient he stopped his home [place] approximately 1 week ago. Reports this has not been working/no longer helping. Continues to take his other home medications daily. No new numbness, tingling, or weakness in his upper extremities. No chest pain or SOB. Pain is reproducible on exam. Last MRI of c-spine done on 09/05/22 and showed [id number] degenerative spondylosis in the cervical spine, as detailed above, probably worst at C4-C5 and C5-C6 and minimal grade 1 anterolisthesis of C4 over C5. CT of head and c-spine done today and showed no acute fracture or traumatic, malalignment in the cervical spine, possible mild pulmonary edema, 2.7 cm right thyroid nodule, and no acute intracranial process. Current plan per pain management note on 02/07/23 - repeat mbb1 at C2-C4 due to this being suspected pain site, had a +facet loading pain. Despite 0.5 mg of hydromorphone IV x2, Toradol 15 IVP, and Flexeril 10 mg PO, the patient continues to endorse significant/severe pain. Lab work was unremarkable. Review of Systems Review of Systems: All systems reviewed & are unremarkable except as noted in HPI and below [facility] Past Medical History Medical History (Updated 03/18/23 @ 19:54 by Tammie White, AILYN) Bilateral carpal tunnel syndrome Bilateral primary osteoarthritis of hip Bilateral primary osteoarthritis of knee Bladder wall thickening Cervical radiculopathy due to degenerative joint disease of spine Cervicalgia Chronic narcotic use Elevated blood pressure reading Elevated prostate specific antigen [PSA] Hypothyroidism Other intervertebral disc degeneration, lumbar region Ulnar nerve entrapment Surgical History Surgical History History of meniscectomy of left knee (~12/01/17) by [facility] History of shoulder surgery Bilateral History of total left knee replacement (TKR) (~06/01/21) Conformis per [facility] Hx of meniscectomy of right knee (~11/23/12) by [facility] Family History Family History Father Family history of cardiovascular disease Son Diabetes mellitus Sibling Acute myocardial infarction Social History Social History Smoking status: Never smoker Second hand tobacco smoke exposure: No Additional smoking assessment comments: DENIES ANY FORM OF TOBACCO USE Alcohol intake: never Substance use: never Substance use type: painkillers Other substance usage details: patient states taking prescription hydrocodone last few weeks Last use: 03/08/23 Do You Feel Safe in your Home?: Yes Lack of Transportation: YES Lack of Food: Never True Current Housing: I Have Housing Concerned About Future Housing: No Difficulty Paying Gas/Electric Bills: No Difficulty Paying for Meds: No Currently Unemployed: No Education: Associate Degree Difficulty w/ Childcare or Family Care: No Living arrangements: alone Occupation/Education: 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
--- NOTE | 2023-03-18 18:25 | ADMGEN ---
This patient, Himanshu Zuniga, was admitted to 2 Medical Room 259-01. Patient/family oriented to hospital policies and general routines including ID bracelet, bed and alarms, visiting hours, pain management, procedures, bathroom and other care routines, personal items, smoking policy, room service/diet, and visiting hours. Information on how to activate the Rapid Response Team has been discussed. Patient/Family are encouraged to report perceived risks to care and to ask questions if they do not understand what they are told or what they should do. Report taken from Nereida in ED
[2023-03-18 18:35] VITALS: BMI 31.2
[2023-03-18 21:13] VITALS: BP 144/66; PULSE 62; RESP 16; TEMP 36.9; O2SAT 100
[2023-03-18] MEDS: diphenhydrAMINE HCl INJ 50 MG/ML VIAL 25 MG IV PUSH (21:58)
[2023-03-18] MEDS: KETOROLAC 30 MG/ML VIAL (*BKC) IV PUSH (21:59)
--- NOTE | 2023-03-19 01:03 | PC.NURSE ---
PT RESTING WITH EYES CLOSED
[2023-03-19] MEDS: HYDROmorphone HCL INJ (*CRX) 1 MG/ML SYR 0.5 MG IV PUSH ×4 (02:08→14:09)
[2023-03-19 06:00] VITALS: BP 152/72; PULSE 71; RESP 18; TEMP 36.9; O2SAT 98
[2023-03-19] MEDS: LEVOTHYROXINE SODIUM 112 MCG TABLET PO (07:01)
[2023-03-19] MEDS: MULTIVITAMINS THERAPEUTIC TAB (*BKC) 1 TABLET PO (09:48)
[2023-03-19] MEDS: KETOROLAC 30 MG/ML VIAL (*BKC) IV PUSH (09:51)
--- NOTE | 2023-03-19 11:22 | WPDNEUROSGCN ---
Assessment and Plan Assessment and plan (1) Cervical spondylosis: Code(s): M47.812 - Spondylosis without myelopathy or radiculopathy, cervical region Status: Acute Plan Mr. Zuniga is a 72-year-old male presenting with acute on chronic right-sided neck pain radiating into the right occipital region without radiation of pain or paresthesias into the arms. He has very limited ROM on physical exam and diffuse tenderness to palpation of his neck but otherwise does not have a focal neurologic deficit. I reviewed his CT cervical spine performed in the ER which shows significant facet arthropathy on the right side at C2-6. Otherwise, I do not see any acute pathology. I discussed with the patient that I agree with Dr. Watts' recommendation of attempting injections through Pain Management and encouraged him to return to [facility]. He is certainly welcome to see another PM group if he prefers as he indicated not having a great experience at the facility. He has not yet had any physical therapy to date, so I would also recommend inpatient and outpatient physical therapy for his neck. I would consider adding a muscle relaxer like methocarbamol and possibly a Medrol dosepak. He should follow up with Dr. Watts as scheduled. Plan: -No acute neurosurgical intervention indicated at this time -Recommend outpatient physical therapy (he would also benefit from inpatient therapy if available in the hospital) -Consider methocarbamol and Medrol dosepak -Recommend follow up with [facility]/Pain Management for medial branch blocks -Follow up with Dr. Watts in clinic as scheduled Consult date: 03/19/23 HPI: Himanshu Zuniga is a 72 year old male who presented to the ER yesterday with intractable right-sided neck pain. He has been following as an outpatient with Dr. Watts for neck and arm pain. At his last visit in January, Dr. Watts recommended Orthopedic evaluation for suspected shoulder pathology causing his arm symptoms as well as referral back to [facility] for consideration of medial branch blocks at C3-6. The patient had shoulder injections with Dr. Jimenez which resolved his arm pain. He went to [facility] but did not like that he had to pay a co-pay for his clinic visit but was not able to get the injections on the same day. He felt this was a scam and elected not to return for injections. Over the last 7-10 days, he has had increasing right-sided neck pain which radiates into the right occipital region. He no longer has radicular pain or paresthesias in the arms. He denies arm/leg weakness. His pain worsens with turning his head in particular. He was taking [place] until 2 weeks ago because he did not find it helpful. Most recently, he has been taking meloxicam BID for pain. Review of Systems Review of Systems: All systems reviewed & are unremarkable except as noted in HPI and below [facility] Past Medical History Medical History (Updated 03/18/23 @ 19:54 by Tammie White APRN) Bilateral carpal tunnel syndrome Bilateral primary osteoarthritis of hip Bilateral primary osteoarthritis of knee Bladder wall thickening Cervical radiculopathy due to degenerative joint disease of spine Cervicalgia Chronic narcotic use Elevated blood pressure reading Elevated prostate specific antigen [PSA] Hypothyroidism Other intervertebral disc degeneration, lumbar region Ulnar nerve entrapment Surgical History Surgical History History of meniscectomy of left knee (~12/01/17) by [facility] History of shoulder surgery Bilateral History of total left knee replacement (TKR) (~06/01/21) Conformis per [facility] Hx of meniscectomy of right knee (~11/23/12) by [facility] Family History Family History Father Family history of cardiovascular disease Son Diabetes mellitus Sibling Acute myocardial infarction Social History Social History (Reviewed 03/18/23 @ 19:52 by Tammie Lockett
[2023-03-19 14:00] VITALS: BP 129/75; PULSE 61; RESP 18; TEMP 36.7; O2SAT 96
--- NOTE | 2023-03-19 14:04 | PM.IMPN ---
Progress Note: A&P Assessment and Plan (1) Cervicalgia: Code(s): M54.2 - Cervicalgia Status: Acute Assessment and Plan: -CT Head: No acute intracranial process. -CT C-Spine: No acute fracture or traumatic malalignment in the cervical spine. Possible mild pulmonary edema. 2.7 cm right thyroid nodule, recommend outpatient thyroid ultrasound for further evaluation. -pain management Tylenol alternating heat and ice hold home norco and mobic -neurosurgery consult and appreciate recommendation and plan please see below Plan: -No acute neurosurgical intervention indicated at this time -Recommend outpatient physical therapy (he would also benefit from inpatient therapy if available in the hospital) -Consider methocarbamol and Medrol dosepak -Recommend follow up with [facility]/Pain Management for medial branch blocks -Follow up with Dr. Watts in clinic as scheduled (2) Hypothyroidism: Code(s): E03.9 - Hypothyroidism, unspecified Status: Acute Assessment and Plan: -continue Synthroid 112 mcg PO Plan Home Meds/Chronic Conditions - continue home multivitamin Diet: Heart healthy GI Prophylaxis: Not indicated DVT Prophylaxis: SCDs Lines: pIV Code Status: Full Code Subjective Date/time seen: 03/19/23 14:04 Interval history: 72 y/o M presents here with neck pain with PMH of cervical radiculopathy, chronic pain with chronic narcotic use, hypothyroidism, and degenerative disc disease. Patient presents here with acute on chronic neck pain that has been worsening over the course of the last 2 weeks. No aggravating injury, fall, or event prior to worsening of symptoms. Pain radiates into his lower skull. Pain is primarily on the right, typically is more bilateral. Patient currently follows with Neuro Surgery here for his neck, Ortho here for his shoulders, and Pain Management at [facility]. Patient reports he will not be going back to this pain clinic due to a recent unnecessary appointment/cost per appt - just follow-up from previous injection and scheduling the next injection. Per patient he stopped his home [place] approximately 1 week ago. Reports this has not been working/no longer helping. Continues to take his other home medications daily. No new numbness, tingling, or weakness in his upper extremities. No chest pain or SOB. Pain is reproducible on exam. Last MRI of c-spine done on 09/05/22 and showed [id number] degenerative spondylosis in the cervical spine, as detailed above, probably worst at C4-C5 and C5-C6 and minimal grade 1 anterolisthesis of C4 over C5. CT of head and c-spine done today and showed no acute fracture or traumatic, malalignment in the cervical spine, possible mild pulmonary edema, 2.7 cm right thyroid nodule, and no acute intracranial process. Current plan per pain management note on 02/07/23 - repeat mbb1 at C2-C4 due to this being suspected pain site, had a +facet loading pain. Despite 0.5 mg of hydromorphone IV x2, Toradol 15 IVP, and Flexeril 10 mg PO, the patient continues to endorse significant/severe pain. Lab work was unremarkable. Interval Hx: 03/19/2023 patient seen this morning he is lying in the bed with ice pack to the back of his neck he reports overnight events of not being able to rest and unable to gain adequate pain control. He denies any nausea vomiting fever or chills at this time. Review of Systems Review of Systems: All systems reviewed & are unremarkable except as noted in HPI and below Exam Const: General: no acute distress and uncomfortable Other: male, , non-toxic appearance HENMT: Face/Nose/Sinus: Normal nares present Mouth: Yes moist mucous membranes Eyes: General: appearance normal, both eyes and all related structures Sclera: sclerae normal Pupils: Equal, round and reactive pupils present EOM: EOMs intact bilaterally Neck: Other: tenderness along c-spine and R posterior/lateral neck. no deformi
[2023-03-19] MEDS: predniSONE 10 MG TABLET 40 MG PO (15:20)
[2023-03-19] MEDS: methocarbamoL 500 MG TABLET PO ×2 (16:59→21:56)
[2023-03-19] MEDS: ACETAMINOPHEN 325 MG TABLET 650 MG PO (17:11)
[2023-03-19] MEDS: HYDROcodone/acetaminophen (*CRX) 5-325 MG TABLET 1 TAB PO (18:57)
[2023-03-19 22:00] VITALS: BP 149/73; PULSE 74; RESP 20; TEMP 36.6; O2SAT 96
[2023-03-20] MEDS: LEVOTHYROXINE SODIUM 112 MCG TABLET PO (05:59)
[2023-03-20 06:00] VITALS: BP 121/58; PULSE 70; RESP 20; TEMP 36.4; O2SAT 98
--- NOTE | 2023-03-20 07:29 | PM.DS ---
DS: Admitting Diagnosis Discharge Date 03/20/2023 Admitting Diagnosis spondylosis without myelopathy or radiculopathy cervical region DS: Discharge Diagnosis Discharge Diagnosis (1) Acute neck pain: Code(s): M54.2 - Cervicalgia Status: Acute Assessment and Plan: -CT Head: No acute intracranial process. -CT C-Spine: No acute fracture or traumatic malalignment in the cervical spine. Possible mild pulmonary edema. 2.7 cm right thyroid nodule, recommend outpatient thyroid ultrasound for further evaluation. -pain management (2) Impingement syndrome of both shoulders: Code(s): M75.41 - Impingement syndrome of right shoulder; M75.42 - Impingement syndrome of left shoulder Status: Acute (3) Cervical spondylosis: Code(s): M47.812 - Spondylosis without myelopathy or radiculopathy, cervical region Status: Acute (4) Cervicalgia: Code(s): M54.2 - Cervicalgia Status: Acute Assessment and Plan: -CT Head: No acute intracranial process. -CT C-Spine: No acute fracture or traumatic malalignment in the cervical spine. Possible mild pulmonary edema. 2.7 cm right thyroid nodule, recommend outpatient thyroid ultrasound for further evaluation. -pain management Tylenol alternating heat and ice hold home norco and mobic -neurosurgery consult and appreciate recommendation and plan please see below Plan: -No acute neurosurgical intervention indicated at this time -Recommend outpatient physical therapy (he would also benefit from inpatient therapy if available in the hospital) -Consider methocarbamol and Medrol dosepak -Recommend follow up with [facility]/Pain Management for medial branch blocks -Follow up with Dr. Watts in clinic as scheduled (5) Hypothyroidism: Code(s): E03.9 - Hypothyroidism, unspecified Status: Acute Assessment and Plan: -continue Synthroid 112 mcg PO (6) Thyroid nodule: Code(s): E04.1 - Nontoxic single thyroid nodule Status: Acute Assessment and Plan: As evidenced by cervical CT, 2.7 cm right thyroid nodule -recommendation outpatient thyroid ultrasound for further evaluation -follow-up outpatient Plan Home Meds/Chronic Conditions - continue home multivitamin Diet: Heart healthy GI Prophylaxis: Not indicated DVT Prophylaxis: SCDs Lines: pIV Code Status: Full Code DS: Summary Hospital Course Reason for hospitalization: Himanshu Zuniga is a 72 year old male who presented to the ER yesterday with intractable right-sided neck pain. He has been following as an outpatient with Dr. Watts for neck and arm pain. Hospital Course: Chief complaint: Neck Pain/Injury Stated complaint: increasing neck pain/ray Time Seen by Provider: 03/18/23 10:30 History of Present Illness HPI narrative: 72-year-old male with history of degenerative disc disease present emergency department for evaluation of worsening right-sided neck pain.? Patient had an MRI approximately 4 months ago.? Patient is scheduled for follow-up with Neurosurgery.? Patient states that his pain has been worsening over the course of the last 2 weeks.? Patient stop taking his medications for pain control because he did not feel they were helping.? Patient states that over the course of the last week the pain was further worsened. Interval Hx: 03/19/2023 ?patient seen this morning he is lying in the bed with ice pack to the back of his neck he reports overnight events of not being able to rest and unable to gain adequate pain control.? He denies any nausea vomiting fever or chills at this time 03/20/2023: Pt seen this am, he reports ongoing pain overnight, he states that he was given a lidocaine patch, that helped resolve some of his pain, but not all of it. He reports that he understands this pain is chronic, and at this time he states he would like to go back to his PCP for further evaluation. I discussed the recs from neurosurgery, pt has declined methocarbamol at t
== END 2023-03-20 08:16 | disposition home or self-care (01) ==
LOC: ANHED 15:13 → ANH2MED 17:37
PROVIDERS: Admitting Provider Hospitalist; Emergency Provider Emergency Medicine; PCP Family Medicine; Visit Provider Hospitalist
DX: M47.812 Spondylosis without myelopathy or radiculopathy, cervical region (principal); M50.30 Other cervical disc degeneration, unspecified cervical region; M48.02 Spinal stenosis, cervical region; M75.41 Impingement syndrome of right shoulder; M75.42 Impingement syndrome of left shoulder; R97.20 Elevated prostate specific antigen [PSA]; E04.1 Nontoxic single thyroid nodule; G89.29 Other chronic pain; M16.0 Bilateral primary osteoarthritis of hip; M17.0 Bilateral primary osteoarthritis of knee; E03.9 Hypothyroidism, unspecified; E66.9 Obesity, unspecified; Z68.31 Body mass index [BMI] 31.0-31.9, adult; Z79.891 Long term (current) use of opiate analgesic; Z79.899 Other long term (current) drug therapy
CPT/HCPCS: 36415; 70450; 72125; 80053; 85025; 96374; 96375; 96376; 99285; A9270; G0378; J1170; J1200; J1885; J7512

== ENCOUNTER 2023-04-18 10:43 | Outpatient (CLI) | payer MEDICARE, SELFPAY ==
--- NOTE | ~2023-04-18 | US_ITS ---
EXAMINATION: US thyroid DATE: 04/18/2023 11:20 INDICATION: Nontoxic single thyroid nodule TECHNIQUE: Multiple ultrasound images of the thyroid were obtained. COMPARISON: None. FINDINGS: The right thyroid lobe measures 4.3 x 2.5 x 2.5 cm. The left thyroid lobe measures 2.3 x 1.4 x 1.3 c m. There is a 2.3 cm solid wider than tall isoechoic nodule with smooth margins and without internal echogenic foci in the right thyroid (TI-RADS 3, mildly suspicious , FNA if >=2.5 cm, annual followup is >=1.5 cm). The remainder of the thyroid demonstrates heterogeneous decreased echogenicity with co arsened echotexture. IMPRESSION: 1. 2.3 cm TI RADS 3 right thyroid nodule for which annual ultrasound follow-up is recommended. 2. Otherwise relatively small heterogeneous thyroid with coarsened echotexture which could represent sequela of chronic thyroiditis. Reviewed, dictated and finalized at location [facility]. [employer]
== END 2023-04-18 10:44 | disposition home or self-care (01) ==
PROVIDERS: PCP Family Medicine; Visit Provider Family Medicine
DX: E04.1 Nontoxic single thyroid nodule (principal)
CPT/HCPCS: 76536

== ENCOUNTER 2023-09-15 08:08 | Outpatient (CLI) | payer MEDICARE, SELFPAY ==
--- NOTE | ~2023-09-15 | MR_ITS ---
MRI of the right shoulder Technique: Axial proton-density fat-sat images, coronal proton density fat-sat and T2 fat-sat images, and sagittal T1-weighted and T2 fat-sat images were acquired. Clinical History: Congestion syndrome Findings: Multiple sequences are degraded by motion artifact. There is moderate AC joint degenerative change, bony productive change of the distal clavicle. Coraco clavicular, coracoacromial, and coracohumeral ligaments appear intact. There is probable moderate tendinosis of the supraspinatus and infraspinatus tendons. There is a low to moderate grade bursal surface partial tear of the midportion of the infraspinatus tendon. There is low to moderate grade articular surface partial tear at the distal insertion primarily involving the posterior aspect of the supraspinatus tendon or anterior aspect of the infraspinatus tendon. There i s moderate subscapularis tendinosis. Tendon of the long head of the biceps is intact. No definite labral tear seen. Inferior humeral ligament is intact. No degenerative change or effusion of the glenohumeral joint. No fluid distention of the subacromial/subdeltoid bursa. No muscle atrophy or edema. Impression: Suboptimal exam due to significant motion artifact. Low to moderate grade bursal surface partial tear of the midportion of the infraspinatus tendon. Low to moderate grade articular surface partial tear of the distal insertion of the rotator cuff, inv olving the posterior aspect of the supraspinatus tendon or anterior aspect of the infraspinatus tendo n. Background rotator cuff tendinosis. Moderate AC joint degenerative change. Reviewed, dictated and finalized at location . Impression: Suboptimal exam due to significant motion artifact. Low to moderate grade bursal surface partial tear of the midportion of the infr aspinatus tendon. Low to moderate grade articular surface partial tear of the distal insertion of the rotator cuff, involving the posterior aspect of the supraspinatus tendon o r anterior aspect of the infraspinatus tendon. Background rotator cuff tendinosis. Moderate AC joint degenerative change.
--- NOTE | ~2023-09-15 | MR_ITS ---
MRI of the left shoulder Technique: Axial proton-density fat-sat images, coronal proton density fat-sat and T2 fat-sat images, and sagittal T1-weighted and T2 fat-sat images were acquired. Clinical History: Impingement Findings: Multiple sequences are degraded by motion artifact. There is mild AC joint degenerative change. There is mild bony productive change of the distal clavic le. Coracoclavicular, coracoacromial, and coracohumeral ligaments are intact. There is moderate supraspinatus and infraspinatus tendinosis. No definite partial or full-thickness t ear of the tendon seen. Subscapularis tendon is intact with mild to moderate tendinosis. Tendon of th e long head of the biceps is intact. There is probable superior labral tearing extending to the anterosuperior aspect. Inferior glenohumeral ligament is intact. There is mild glenohumeral joint degenerative change. No ariana int effusion evident. No fluid distention of the subacromial/subdeltoid bursa. No muscle atrophy or e chiqui. Impression: Suboptimal exam due to motion artifact. Rotator cuff tendinosis without definite partial or full-thickness tear. Probable superior labral tear extending to the anterosuperior portion. Mild AC joint and glenohumeral joint degenerative change. Reviewed, dictated and finalized at location . Impression: Suboptimal exam due to motion artifact. Rotator cuff tendinosis without definite partial or full-thickness tear. Probable superior labral tear extending to the anterosuperior portion. Mild AC joint and glenohumeral joint degenerative change.
== END 2023-09-15 08:09 ==
LOC: GOSHIMG 08:09
PROVIDERS: PCP Family Medicine; Visit Provider Orthopaedic Surgery
DX: M19.012 Primary osteoarthritis, left shoulder (principal); M75.32 Calcific tendinitis of left shoulder; M75.41 Impingement syndrome of right shoulder; M75.42 Impingement syndrome of left shoulder
CPT/HCPCS: 73221

== ENCOUNTER 2024-01-23 00:27 | Day surgery (SDC) | payer MEDICARE, SELFPAY ==
[2024-01-09 15:41] VITALS: BMI 30.4
--- NOTE | 2024-01-09 16:00 | PC.NURSE ---
Report to the Outpatient Waiting Room, entrance under the green pavilion located off [facility], at time __11:00AM____ on date ___01/23/24____. Planned Procedure Time: __1:00PM .? Time changes happen often and if your time is changed the preop area will call you the afternoon before. - You and your visitor will be asked to self-screen and do not enter if you have any COVID symptoms. Please call surgeon if you need to reschedule. - A mask is optional within the hospital at this time. Patients may have clear liquids (water, carbonated beverages, clear teas, apple juice) until 3 hours prior to surgery with a maximum of 20 ounces. - No food from midnight until time of surgery and no smoking. This includes no chewing gum, candy or mints. - Infants may have breast milk until 4 hours before surgery, formula 6 hours prior to surgery. - Children will be allowed to drink immediately following surgery.? If applicable, please bring a bottle or sippy cup to assist with drinking. Juice, water, soda, and popsicles are readily available.? For infants on formula, please bring formula the day of surgery.? Pacifiers are allowed. Take only the following medications with a SIP of water on the morning of surgery: LEVOTHYROXINE. MAY TAKE HYDROCODONE NEEDED FOR PAIN. DO NOT STOP ANY OF YOUR OTHER PRESCRIPTION MEDICATIONS PRIOR TO SURGERY EXCEPT THE FOLLOWING Medications to discontinue per physician HOLD MELOXICAM 7 DAYS PRE-OP PER DR MCFARLANE Date to take last dose 01/15/24 Please no make-up, nail kyrgyz, hairspray, perfume, deodorant, or body powder the day of surgery.? No jewelry (including any body piercings) or valuables the day of surgery, leave them at home.? Please take a shower or bath the night before, or the morning of, surgery with an antibacterial soap.? Wear comfortable, loose fitting clothing.? Children are encouraged to wear pajamas. - Jewelry must be removed prior to entering the operating room.? Rings and piercings that are not removed may be cut off. - The hospital will not accept responsibility for valuables.? - Please leave all valuables, including medications, at home the day of surgery. If you are going home after surgery, a licensed delivery driver assistant must drive you home.? - NO public transportation without another adult if you receive anesthesia. - We recommend that an adult stay with you for 24 hours following discharge. - We also recommend that you do not drive, make important decision, drink alcoholic beverages, or take any drugs that were not prescribed by your health care provider for at least 24 hours after your discharge time. For Pediatric surgeries, we recommend two adults accompany the child home. Follow any additional instructions given to you from your surgeon. Telephone instructions given to ___PATIENT and asked if any additional questions and then verbalized understanding. Patient advised to call surgeon office or pre surgery nurse liaison [phone] if any additional questions.
[2024-01-23] VITALS (11 sets, daily range): BP systolic 148–175; BP diastolic 76–112; PULSE 83–91; RESP 14–18; TEMP 36.1–37; O2SAT 99–100; BMI 30.7
[2024-01-23] MEDS: EPINEPHrine HCL INJ 1 MG/ML AMPUL 3 MG IRRIGATION (08:36)
[2024-01-23] MEDS: KETOROLAC 15 MG/ML VIAL (*BKC) IV PUSH ×2 (11:15→17:15)
[2024-01-23] MEDS: ACETAMINOPHEN 500 MG TABLET 1000 MG PO (11:15)
--- NOTE | 2024-01-23 12:17 | P.PNAN_ITS ---
Anes - Initial Pre Proc Eval Procedure: Operation Date: 01/23/24 13:00 Proposed Procedures p Right Shoulder Arthroscopic Rotator Cuff Repair, Subacromial Decompression, Proceed as Indicated - Clark Jimenez MD Date/Time: 01/23/24 12:17 Surgeon: Clark Jimenez MD Pre Op Diagnosis: Partial Thickness Rot Cuff Tear Rt Shoulder Patient Data Age: 73 Gender: M Height: 1.83 m Weight: 102.7 kg Last Vital Signs Temp 37.0 C 01/23/24 11:32 Pulse 85 01/23/24 11:32 Resp 18 01/23/24 11:32 BP 148/98 H 01/23/24 11:32 Pulse Ox 99 01/23/24 11:32 Allergies Allergy/AdvReac Type Severity Reaction Status Date / Time No Known Allergies Allergy Verified 01/23/24 10:54 Home Medications ?Medication ?Instructions ?Recorded ?Confirmed ?Type meloxicam 7.5 mg tablet 7.5 mg PO BID #60 tabs 10/24/23 01/23/24 Rx hydrocodone 10 mg-acetaminophen 1 tablet PO Q4H PRN pain #150 tabs 12/01/23 01/23/24 Rx 325 mg tablet levothyroxine 112 mcg tablet 112 mcg PO QAM 01/09/24 01/23/24 History (Synthroid) oxycodone-acetaminophen 5 mg-325 1 - 2 tablet PO Q4-6H PRN pain 7 01/23/24 Rx mg tablet days #40 tabs Patient hx anesthesia problems: none Family hx anesthesia problems: none Results Review: All pre-operative results and documents have been reviewed as part of the pre- operative evaluation. [facility] Past Medical History Medical History Bladder wall thickening Cervical radiculopathy due to degenerative joint disease of spine Ulnar nerve entrapment Bilateral carpal tunnel syndrome Cervicalgia Chronic narcotic use Elevated blood pressure reading Bilateral primary osteoarthritis of knee Bilateral primary osteoarthritis of hip Elevated prostate specific antigen [PSA] Hypothyroidism Other intervertebral disc degeneration, lumbar region Surgical History Surgical History History of total left knee replacement (TKR) (~06/01/21) [facility] per [facility] History of shoulder surgery Bilateral History of meniscectomy of left knee (~12/01/17) by [facility] Hx of meniscectomy of right knee (~11/23/12) by [facility] Family History Family History Father Family history of cardiovascular disease AA (aortic aneurysm) Son Diabetes mellitus Sibling Acute myocardial infarction Mother Depression Spinal fracture Social History Social History Smoking status: Never smoker Second hand tobacco smoke exposure: Yes Additional smoking assessment comments: DENIES ANY FORM OF TOBACCO USE Alcohol intake: former Substance use: never Substance use type: painkillers Other substance usage details: patient states taking prescription hydrocodone last few weeks Last use: 03/08/23 Do You Feel Safe in your Home?: Yes Lack of Transportation: No Lack of Food: Never True Current Housing: I Have Housing Concerned About Future Housing: No Difficulty Paying Gas/Electric Bills: No Difficulty Paying for Meds: No Currently Unemployed: No Education: Associate Degree Difficulty w/ Childcare or Family Care: No Living arrangements: alone Occupation/Education: 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 Informed Consent: The patient's anesthetic plan and its attendant risks and benefits were di scussed with the patient/family/POA. Questions were solicited and answers provided to the satisfaction of the patient/family/POA.
--- NOTE | 2024-01-23 13:11 | WPDHPUPDATE1 ---
History and Physical Update Update Date/Time: 01/23/24 13:11 History and Physical has been reviewed, including an updated exam of the patient. There are NO changes in the patient's condition. Risks, benefits, and alternatives have been discussed and questions answered. Patient agrees to proceed with procedure.
[2024-01-23] MEDS: ceFAZolin 2 GM/D5W 50 ML 2 GM/50 ML BAG IVPB (13:28)
[2024-01-23] MEDS: BUPIVACAINE/EPINEPHRINE 0.5% 10 ML VIAL 30 ML INFILTRATE (13:59)
[2024-01-23] MEDS: LACTATED RINGERS 1,000 ML 30 ML IV CONT ×2 (15:07)
[2024-01-23] MEDS: HYDROmorphone HCL INJ (*CRX) 1 MG/ML SYR 0.25 MG IV PUSH ×16 (15:27→17:05)
[2024-01-23] MEDS: oxyCODONE HCL (*CRX) 5 MG TAB IR PO (16:01)
--- NOTE | 2024-01-23 16:46 | W.PM.PROC2 ---
Procedure Note - Detailed Date of Procedure 01/23/24 Pre-op Diagnosis Partial Thickness Rot Cuff Tear Rt Shoulder Post-op Diagnosis Other (1. Partial thickness rotator cuff tear 2. Subacromial impingement 3. Biceps tendinosis 4. Degenerative labral tear) Procedure Performed Right shoulder 1. Arthroscopic rotator cuff repair 2. Arthroscopic subacromial decompression 3. Arthroscopic biceps tenotomy with SLAP tear debridement Surgeon Clark Jimenez MD Linux Admin Engineer Fannie Escalera PA-C Anesthesia General and Regional ( interscalene block) Findings Mid grade articular tear of the supraspinatus. Minimal fraying on the bursal surface. Prominent lateral acromion treated with acromioplasty. Rotator cuff repaired with the Regeneten, 5 CRISTHIAN soft tissue anchors and 2 peek bone anchors. The biceps was flattened and there was a significant tendinosis and SLAP tear. Biceps tenotomy and labral debridement was performed. No significant arthritis. Subscapularis intact. Description of Procedure Preoperative antibiotics were given. An interscalene block was administered in the preoperative area. The patient was bought brought to the operating room. A general anesthetic was administered. The patient was carefully positioned in the beach chair position. The head and neck were carefully positioned. The non operative extremity was also carefully positioned. The shoulder was prepped and draped in the usual sterile fashion. Examination was performed. Standard posterior and anterior arthroscopic portals were established. Inflow achieved with the arthroscopic pump using saline and epinephrine. The glenohumeral joint was carefully inspected. The articular cartilage was healthy. The supraspinatus showed notable significant mid grade articular tear. The biceps was flattened and inflamed. There was hyperemia also an undersurface rotator cuff. Tenotomy was performed followed by debridement of the superior labrum. No other significant findings. 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 Attention was turned to the subacromial space. A complete bursectomy was performed. The tear was previously marked with a PDS suture. This tissues in this area were pretty healthy on the bursal side although there was some mild fraying. There was evidence of subacromial impingement with a prominent area at the lateral acromion and fairly tight subacromial space. The Regeneten implant was inserted after creating an accessory superolateral portal for anchor placement. Medial soft tissue anchors were placed x5. Two lateral peek anchors were then placed. The arthroscopic instruments were removed. The wounds were closed with 3-0 Monocryl subcuticular suture and steri strips. There were no complications. A sling was applied and the patient brought to the recovery room. Physician environmental emergencies assistant, Fannie Escalera PA-C, required for surgery; including patient positioning, draping, arthroscopic camera operation, maintaining instrument position, anchor placement, suture retrieval, wound closure, and dressing and sling placement. Implants Regeneten large collagen implant. [employer]. Five CRISTHIAN soft tissue anchors. Two peek bone anchors. Estimated Blood Loss 10 Pathology None sent Complications No immediate complications Condition Stable Disposition PACU [facility] Billing Surgery - Charge Forward: Surgery Billing
[2024-01-23] MEDS: fentaNYL CITRATE INJ (*CRX) 100 MCG/2 ML VIAL 25 MCG IV PUSH ×4 (17:25→17:35)
== END 2024-01-23 17:46 | disposition home or self-care (01) ==
PROVIDERS: PCP Family Medicine; Visit Provider Orthopaedic Surgery
PROC: (CPT 29805; principal; 2024-01-23 13:00)
DX: M75.111 Incomplete rotator cuff tear or rupture of right shoulder, not specified as traumatic (principal); M25.811 Other specified joint disorders, right shoulder; I10 Essential (primary) hypertension; E03.9 Hypothyroidism, unspecified; G56.03 Carpal tunnel syndrome, bilateral upper limbs; M16.0 Bilateral primary osteoarthritis of hip; M17.0 Bilateral primary osteoarthritis of knee; M51.369 Other intervertebral disc degeneration, lumbar region without mention of lumbar back pain or lower extremity pain; Z98.890 Other specified postprocedural states; Z79.891 Long term (current) use of opiate analgesic; Z82.49 Family history of ischemic heart disease and other diseases of the circulatory system
CPT/HCPCS: 29827; 29826; A9270; C1713; J0171; J0690; J1100; J1171; J1885; J2003; J2405; J2704; J3010; J7120

== ENCOUNTER 2024-04-16 11:08 | Outpatient (CLI) | payer MEDICARE, SELFPAY | END 2024-04-16 11:09 | disposition home or self-care (01) | LOC: ANHIMG 11:09 | PROVIDERS: PCP Family Medicine; Visit Provider Family Medicine | DX: R22.1 Localized swelling, mass and lump, neck (principal); M54.2 Cervicalgia | CPT/HCPCS: 70490 ==